=== PATIENT | male | born 1950 | race Caucasian/White ===

== ENCOUNTER → 2016-07-01 | Day surgery (SDC) | payer BC ==
[2016-06-27 07:35] VITALS: Ht 175.3 cm; Wt 86.4 kg
[~2016-07-01] VITALS: Ht 175.3 cm; Wt 86.4 kg
[~2016-07-01] MED LIST: CEFD300C2 PO; CHOL2000 PO; FURO-85 PO; LIDOCAINE HCL 2% 2 ML VIAL (20MG/ML) ONE; MULT-506 PO; PANT40TA PO; PROPOFOL IV EMULSION 10 MG/ML 20 ML VIAL IV ONE; SODIUM CHLORIDE 0.9% 500ML 500 ML IV ONE; SODIUM CHLORIDE PO
--- NOTE | 2016-07-01 09:12 | Endo History and Physical ---
History & Physical Date of Service: July 01, 2016. Chief Complaint: Celis's,history of polyps and family history of colon cancer Referring Physician: Dr. George Slaughter History of Present Illness 66 yo CM who presents for EGD and Colonoscopy secondary to Celis's esophagus and history of colon polyps. Past Medical History Reflux, Other Past Surgical History Hx Cardiac Surgery: No Hx Internal Defibrillator: No Hx Pacemaker: No Hx Abdominal Surgery: Yes (APPY, SYMONE) Hx Post-Op Nausea and Vomiting: No Hx Cancer Surgery: No Hx Thoracic Surgery: No Hx Orthopedic: Yes (RT AND LEFT SHOULDER REPAIR,REPAIR OF FX LEFT TIBIA AND FIBIA) Hx Urinary Tract Surgery: No Family History Colon CA Social History Smoking Status: Former Smoker Hx Substance Use: No Hx Alcohol Use: Yes (2-3 BEERS DAILY) Allergies Coded Allergies: Cephalexin (Verified Allergy, Intermediate, SHORTNESS OF BREATH, 06/27/16) Current Medications Reported Home Medications Medications Dose Route/Sig Max Daily Dose Days Date Category [Sodium Chloride] 1 Gm PO BID 06/27/16 Reported Vitamin D3 (Cholecalciferol) 2,000 Unit Cap 1 Cap PO DAILY AFTERNOON 90 06/27/16 Reported Multivitamin (Multivitamins) Tab 1 Tab PO DAILY AFTERNOON 06/27/16 Reported Lasix (Furosemide) 20 Mg Tab 20 Mg PO QAM 06/27/16 Reported Protonix (Pantoprazole Sodium) 40 Mg Tab 40 Mg PO QAM 06/27/16 Reported Vital Signs Weight (Kilograms): 86.36 Height (Feet): 5 Height (Inches): 9 Date Time Temp Pulse Resp B/P Pulse Ox O2 Delivery O2 Flow Rate FiO2 07/01/16 08:57 36.5 63 20 150/72 99 Room Air Physical Exam General Appearance: WD/WN, no apparent distress Respiratory/Chest: Auscultation: breath sounds normal Cardiovascular: Heart Auscultation: RRR Abdomen: Bowel Sounds: normal Inspection & Palpation: soft, non-distended, no tenderness, guarding & rebound Assessment and Plan Assessment: 66 yo CM who presents for EGD and Colonoscopy secondary to Celis's esophagus and history of colon polyps. Plan: Proceed with EGD and colonoscopy.
--- NOTE | 2016-07-01 09:39 | Discharge Instructions ---
Endoscopy Patient Instructions Date / Procedure(s) Performed July 01, 2016. Colonoscopy, EGD Allergy Information Coded Allergies: Cephalexin (Verified Allergy, Intermediate, SHORTNESS OF BREATH, 06/27/16) Discharge Date / Findings July 01, 2016. EGD: Celis's Esophagus and Hiatal hernia Colonoscopy: Normal Medication Instructions OK to resume all medications today as prescribed Reported Home Medications Medications Dose Route/Sig Max Daily Dose Days Date Category [Sodium Chloride] 1 Gm PO BID 06/27/16 Reported Vitamin D3 (Cholecalciferol) 2,000 Unit Cap 1 Cap PO DAILY AFTERNOON 90 06/27/16 Reported Multivitamin (Multivitamins) Tab 1 Tab PO DAILY AFTERNOON 06/27/16 Reported Lasix (Furosemide) 20 Mg Tab 20 Mg PO QAM 06/27/16 Reported Protonix (Pantoprazole Sodium) 40 Mg Tab 40 Mg PO QAM 06/27/16 Reported Provider Instructions Activity Restrictions - No exercising or heavy lifting for 24 hours. - Do not drink alcohol the day of the procedure. - Do not drive a car or operate machinery until the day after the procedure. - Do not make any important decisions or sign important papers in 24 hours after the procedure. Following Day: - Return to full activity which may include returning to work/school. Diet Start your diet with liquids and light foods (jello, soup, juice, toast). Then eat your usual diet if not nauseated. Treatment For Common After Affects For mild abdominal pain, bloating, or excessive gas: - Rest - Eat lightly - Lie on right side Follow-Up Information Follow-up with Dr. George Slaughter as scheduled Anesthesia Information What You Should Know You have had a procedure that required some medicine to reduce anxiety and discomfort. This treatment is called moderate sedation. After receiving the treatment, you may be sleepy, but you will be able to breathe on your own. The effects of the treatment may last for several hours. Follow these instructions along with Activity/Diet recommendations noted above: * Do NOT do anything where dizziness or clumsiness would be dangerous. * Rest quietly at home today, then you can be up and about tomorrow. * Have a responsible person stay with you the rest of today. * You may have had an I.V. today. If so, you may take the dressing off later today. Recommendations Call your doctor if: * Trouble breathing * Continuous vomiting for more than 24 hours * Temperature above 101 degrees * Severe abdominal pain or bloating * Pain not relieved by pain medicine ordered * There is increased drainage or redness from any incision * A large amount of rectal bleeding greater than 2-3 tablespoons. (If you had a polyp/s removed or have hemorrhoids, a small amount of blood - from the rectum is to be expected.) * You have any unanswered questions or concerns. IN THE EVENT OF A SERIOUS EMERGENCY, GO TO THE NEAREST EMERGENCY ROOM Your discharge instructions were prepared by provider Rogelio Ortiz. Patient Instructions Signature Page Fred Isbell Patient (or Guardian) Signature/Date: I have read and understand the instructions given to me by my caregivers. Caregiver/RN/Doctor Signature/Date: The above-named patient and/or guardian has received patient instructions on this date. + Original Patient Signature Page (only) stays with chart. Please make copy for patient.
--- NOTE | 2016-07-01 09:40 | Anesthesiology Progress Note ---
Anesthesia Post Op Note Date & Time July 01, 2016 at 09:40 Vital Signs Pain Intensity: 0 Vital Signs Past 12 Hours Date Time Temp Pulse Resp B/P Pulse Ox O2 Delivery O2 Flow Rate FiO2 07/01/16 08:57 36.5 63 20 150/72 99 Room Air Notes Mental Status: alert / awake / arousable, participated in evaluation Pt Amnestic to Procedure: Yes Nausea / Vomiting: adequately controlled Pain: adequately controlled Airway Patency, RR, SpO2: stable & adequate BP & HR: stable & adequate Hydration State: stable & adequate Anesthetic Complications: no major complications apparent
--- NOTE | 2016-07-01 09:46 | GI REPORT ---
Procedure Date: 07/01/2016 9:02 AM Procedure: Upper GI endoscopy Indications: Follow-up of Celis's esophagus Medicines: Monitored Anesthesia Care Complications: No immediate complications. Estimated Blood Loss: Estimated blood loss: none. Procedure: Pre-Anesthesia Assessment: - Prior to the procedure, a History and Physical was performed, and patient medications and allergies were reviewed. The patient's tolerance of previous anesthesia was also reviewed. The risks and benefits of the procedure and the sedation options and risks were discussed with the patient. All questions were answered, and informed consent was obtained. Prior Anticoagulants: The patient has taken no previous anticoagulant or antiplatelet agents. ASA Grade Assessment: II - A patient with mild systemic disease. After reviewing the risks and benefits, the patient was deemed in satisfactory condition to undergo the procedure. After obtaining informed consent, the endoscope was passed under direct vision. Throughout the procedure, the patient's blood pressure, pulse, and oxygen saturations were monitored continuously. The On-site loaner was introduced through the mouth, and advanced to the second part of duodenum. The upper GI endoscopy was accomplished without difficulty. The patient tolerated the procedure well. Findings: There were esophageal mucosal changes consistent with short-segment Celis's esophagus present at the gastroesophageal junction. The maximum longitudinal extent of these mucosal changes was 3 cm in length. Biopsies were taken with a cold forceps for histology. A medium-sized hiatus hernia was present. The examined duodenum was normal. Impression: - Esophageal mucosal changes consistent with short-segment Celis's esophagus. Biopsied. - Medium-sized hiatus hernia. - Normal examined duodenum. Recommendation: - Resume previous diet. - Continue present medications. - Await pathology results. - Return to primary care physician as previously scheduled. Rogelio Ortiz DO 07/01/2016 9:45:27 AM This report has been signed electronically. Note Initiated On: 07/01/2016 9:02 AM I attest to the content of the Intraoperative Record and orders documented therein, exceptions below
--- NOTE | 2016-07-01 09:50 | GI REPORT ---
Procedure Date: 07/01/2016 9:01 AM Procedure: Colonoscopy Indications: High risk colon cancer surveillance: Personal history of colonic polyps, Family history of colon cancer in a first-degree relative Medicines: Monitored Anesthesia Care Complications: No immediate complications. Estimated Blood Loss: Estimated blood loss: none. Procedure: Pre-Anesthesia Assessment: - Prior to the procedure, a History and Physical was performed, and patient medications and allergies were reviewed. The patient's tolerance of previous anesthesia was also reviewed. The risks and benefits of the procedure and the sedation options and risks were discussed with the patient. All questions were answered, and informed consent was obtained. Prior Anticoagulants: The patient has taken no previous anticoagulant or antiplatelet agents. ASA Grade Assessment: II - A patient with mild systemic disease. After reviewing the risks and benefits, the patient was deemed in satisfactory condition to undergo the procedure. After I obtained informed consent, the scope was passed under direct vision. Throughout the procedure, the patient's blood pressure, pulse, and oxygen saturations were monitored continuously. The scope was introduced through the anus and advanced to the terminal ileum. The colonoscopy was performed without difficulty. The patient tolerated the procedure well. The quality of the bowel preparation was good. The terminal ileum, the appendiceal orifice and the rectum were photographed. Findings: The entire examined colon appeared normal. Impression: - The entire examined colon is normal. - No specimens collected. Recommendation: - Resume previous diet. - Continue present medications. - Repeat colonoscopy in 5 years for surveillance. - Return to primary care physician as previously scheduled. Rogelio Ortiz DO 07/01/2016 9:49:19 AM This report has been signed electronically. Note Initiated On: 07/01/2016 9:01 AM I attest to the content of the Intraoperative Record and orders documented therein, exceptions below
[2016-07-01 10:20] VITALS: BP 142/68; PULSE 55; O2SAT 100
== END | disposition home or self-care (01) ==
LOC: C.GI 08:39
PROVIDERS: ATTEND Internal Medicine
DX: Z12.11 Encounter for screening for malignant neoplasm of colon (principal); Z86.010 Personal history of colon polyps; Z80.0 Family history of malignant neoplasm of digestive organs; K22.70 Barrett's esophagus without dysplasia; K44.9 Diaphragmatic hernia without obstruction or gangrene; Z87.891 Personal history of nicotine dependence; K20.9 Esophagitis, unspecified; Z79.899 Other long term (current) drug therapy
CPT/HCPCS: 43239; G0105

== ENCOUNTER 2016-07-24 12:08 | Emergency (ER) | payer BC ==
[~2016-07-24] VITALS: Ht 175.3 cm; Wt 88.9 kg
[~2016-07-24 12:08] MED LIST changes: -CEFD300C2 PO; -LIDOCAINE HCL 2% 2 ML VIAL (20MG/ML) ONE; -PROPOFOL IV EMULSION 10 MG/ML 20 ML VIAL IV ONE; -SODIUM CHLORIDE 0.9% 500ML 500 ML IV ONE
[2016-07-24 12:11] VITALS: Ht 175.3 cm; Wt 88.9 kg
[2016-07-24] MEDS ORDERED: BUPIVACAINE 0.5 % 5 MG/1 ML MPF 30ML VIAL INFIL STA (12:48)
[2016-07-24] MEDS ORDERED: XYLOCAINE 1%/SOD BICARB 20 ML VIAL INFIL STA (12:48)
[2016-07-24] MEDS ORDERED: CEFDINIR 300 MG CAP PO STA (12:56)
--- NOTE | 2016-07-24 12:56 | DIAGNOSTIC IMAGING REPORT ---
RIGHT FOURTH FINGER 3 VIEWS CLINICAL HISTORY: crush injury to right 4th finger Right COMPARISON STUDY: None. FINDINGS: Soft tissue swelling within the right fourth finger. Soft tissue laceration at the distal tip. No dislocation. No fractures. No radiopaque foreign bodies. IMPRESSION: Soft tissue swelling and a soft tissue laceration within the right fourth finger. No fracture or dislocation. Electronically signed by: Regino Arreola M.D. 07/24/2016 12:55 PM Dictated Date/Time: 07/24/2016 12:53 PM
[2016-07-24] MEDS ORDERED: GELATIN SPONGE 12-7MM EXT STA (13:08)
[2016-07-24] MEDS ORDERED: DIPHTHERIA/TETANUS/PERTUSSIS 0.5 ML SYR/VIAL IM. ONE (13:15)
[2016-07-24] MEDS ORDERED: CEFD300C2 PO (14:19)
--- NOTE | 2016-07-24 14:22 | EMERGENCY ROOM VISIT NOTE ---
ED Visit Note First contact with patient: 12:30 Chief Complaint: "Ring fingertip laceration". History of Present Illness: This patient is a 66-year-old male who presents to the Emergency Department via private vehicle for evaluation of their right fourth digit laceration. Patient sustained the laceration while attempting to transfer logs into his tractor bucket when he accidentally smashed his finger between a log and bucket. They report a moderate amount of bleeding initially. They deny any numbness or tingling into the distal extremity. They report no decreased range of motion of the affected digit. Injury was sustained at 11:15 AM today. Patient rates his current discomfort as a 6-8/10. Patient's Tetanus status is believed to be currently up-to-date but the patient is unsure. Medications: As noted below Allergies: Cephalexin PMH: No pertinent past medical history at this time. SHx: Patient lives at home with /significant other ROS: All pertinent positive and negative review of systems are appropriately documented in the History of Present Illness. Physical Exam: VITAL SIGNS - Vital signs and nursing notes were reviewed. GENERAL -66-year-old male appearing his stated age who is in no acute distress. Communicates well with provider and answers questions appropriately. SKIN - There is an avulsion of the distal tip of the right fourth digit that spans 1 cm in length. The region does get down to the level of the adipose tissue. No bone exposed. The edges gape apart with traction. No foreign bodies appreciated. Upon further examination there are no deep structures including vessel, tendon, or bony structures appreciated. There is no active bleeding noted. MUSCULOSKELETAL - Laceration as described above. +5/5 strength appreciated of the affected digit. Full range of motion of the affected digit. NEUROLOGIC -sensory intact. Neurovascularly intact. VASCULAR - Capillary refill was brisk. IMAGING: RIGHT FOURTH FINGER 3 VIEWS CLINICAL HISTORY: crush injury to right 4th finger Right COMPARISON STUDY: None. FINDINGS: Soft tissue swelling within the right fourth finger. Soft tissue laceration at the distal tip. No dislocation. No fractures. No radiopaque foreign bodies. IMPRESSION: Soft tissue swelling and a soft tissue laceration within the right fourth finger. No fracture or dislocation. Electronically signed by: Regino Arreola M.D. 07/24/2016 12:55 PM Dictated Date/Time: 07/24/2016 12:53 PM ED Course: Patient was seen and evaluated by myself. Risks and benefits of performing primary wound closure versus no repair were discussed with the patient who verbalizes understanding. Patient has avulsed the distal tip of the finger and the piece that is removed is not available. I am concerned about underlying tissue/bone therefore radiograph was obtained. Results as above. No fracture. Verbal consent was obtained prior to performing the procedure. 7 cc of 50/50 1% buffered lidocaine and 0.5% bupivacaine was used to perform a digital block of the right fourth digit. The wound was cleansed and prepped in the typical sterile fashion utilizing normal saline and Betadine. Due to the concern of infection developing in this dirty wound, I do believe that prophylactic antibiotics are warranted. Patient notes a Keflex allergy, however this was during a time when his sodium was [id number] shortness of breath but no anaphylaxis. I did reviewing his past medical history that he had been administered several sports previously without difficulty. After a thorough discussion of benefits versus risks, a patient noted that he was willing to try another cephalosporin despite the risks. He was administered and Omnicef tablet of 300 mg here, and was observed for one hour. No reaction was noted. He'll be sent home with a 7 day supply of the same medication. He was instructed to be in the presence of a family member when administering himself the next few doses as a reaction may develop. He is to stop the medication return immediately called 911 this is to develop. The wound was sterilely draped. Once proper anesthetization was established, the wound was further examined and demonstrated a clean avulsed lesion. The wound was copiously irrigated with normal saline and Betadine. The wound was closed using one simple , 5-0 Vicryl suture with the wound edges being well approximated followed by Gelfoam for the remainder of the wound could not be closed. Patient tolerated the procedure well. No complications were met. The wound was cleansed and dressed with bulky pressure dressing. Patient received their Adacel vaccination after verifying that his tetanus was 7 years old. Patient educated on worrisome symptoms for return visit to the Emergency Department. Patient discharged to home in good condition. In the evaluation and treatment of this patient, the following differential diagnoses were considered: Finger Fracture, Finger Dislocation, Finger Sprain, Finger Contusion, Jersey Finger, or Mallet Finger. 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 Current/Historical Medications Scheduled Cefdinir (Omnicef), 1 CAP PO BID Cholecalciferol (Vitamin D3), 1 CAP PO DAILY AFTERNOON Furosemide (Lasix), 20 MG PO QAM Multivitamin (Multivitamin), 1 TAB PO DAILY AFTERNOON Pantoprazole (Protonix), 40 MG PO QAM [Sodium Chloride], 1 GM PO BID Allergies Coded Allergies: Cephalexin (Verified Allergy, Intermediate, SHORTNESS OF BREATH, 07/24/16) Vital Signs Date Time Temp Pulse Resp B/P Pulse Ox O2 Delivery O2 Flow Rate FiO2 07/24/16 14:30 36.5 61 18 153/83 98 07/24/16 13:58 61 18 153/83 98 Room Air 07/24/16 12:11 36.5 80 18 177/89 96 Room Air Medications Administered Medications (Trade) Dose Ordered Sig/Francis Route Start Time Stop Time Status Last Admin Dose Admin Cefdinir (Omnicef Cap) 300 mg ONE STAT PO 07/24/16 12:56 07/24/16 12:58 DC 07/24/16 13:17 300 MG Diphtheria/ Pertussis/Tetanus Vacc (Adacel Inj) 0.5 ml ONCE ONCE IM. 07/24/16 13:15 07/24/16 13:16 DC 07/24/16 13:12 0.5 ML Departure Information Impression Primary Impression: Amputation of finger tip Dispostion Home / Self-Care Condition GOOD Prescriptions Cefdinir (OMNICEF) 300 Mg Cap 1 CAP PO BID for 7 Days, #14 CAP Prov: Jesus Alberto Davison PA-C 07/24/16 Referrals George Slaughter M.D. (PCP) Alejo Winter MD Patient Instructions [facility] Additional Instructions You have been treated in the Emergency Department today for your right 4th finger tip Avulsion. Leave the GELFOAM and dressing in place for the next 48 hours. Keep the dressing clean and dry until time for removal. To remove the GELFOAM dressing, remove the overlying tape and then soak the wound in warm water until the piece of GELFOAM can be easily removed. Proper wound care is essential for adequate wound healing and infection prevention. You can shower and clean the wound with soap and water. Do not scour over the wound, pat dry with a towel. You can use an antibiotic ointment with a dressing/bandage over the wound for the next 3-4 days. After this time you may leave the wound dry and open to the air. Look for signs of infection of the wound including: increased pain, swelling, foul discharge, streaking, or increased temperature. If any of these are noticed you should return to the Emergency Department for further assessment and treatment. As with any laceration you may have received nerve damage to the surrounding tissues. This damage could be permanent. For pain control, you can use the following [id number] medicines (if >12 yo): - Regular strength (325mg/tab) Tylenol (acetaminophen) 2 tabs every 4-6 hours as needed. Do not exceed 12 tablets in a 24 hour period. Avoid taking more than 3 grams (3000 mg) of Tylenol per day. This includes any other sources of acetaminophen you may take on a regular basis. - Regular strength (200 mg/tab) Advil (ibuprofen) 1-2 tabs every 4-6 hours as needed. Do not exceed a dose of 3200 mg per day. You've been prescribed Omnicef, as we discussed this medication is a cephalosporin of which you have been allergic to in the past supposedly. We have tried this medication here and you have successfully not had a reaction for the past hour. You've indicated that you are okay taking this medication. This is one tablet every 12 hours for next 7 days. You may take the next tablet around midnight. Duty or injury, it is recommended you follow-up with a hand specialist. This is Dr. Winter. His phone number is listed in the handout here. Return to the emergency department if your symptoms worsen despite treatment course outlined above. Please return to the emergency department with any new/concerning symptoms.
[2016-07-24 14:30] VITALS: BP 153/83; PULSE 61; TEMP 36.5; O2SAT 98
== END 2016-07-24 14:25 | disposition home or self-care (01) ==
LOC: C.EDB 12:10 → C.EDD 14:25
DX: S61.214A Laceration without foreign body of right ring finger without damage to nail, initial encounter (principal); W23.0XXA Caught, crushed, jammed, or pinched between moving objects, initial encounter; Y93.89 Activity, other specified; K22.70 Barrett's esophagus without dysplasia; I10 Essential (primary) hypertension; K21.9 Gastro-esophageal reflux disease without esophagitis; Z87.891 Personal history of nicotine dependence; Z79.899 Other long term (current) drug therapy; Z23 Encounter for immunization

== ENCOUNTER → 2016-11-14 | Outpatient (CLI) | payer BC ==
[2016-11-14 12:53] LABS: ALT/SGPT 19 U/L (12-78); AST/SGOT 10 U/L (15-37); BLOOD UREA NITROGEN 10 mg/dl (7-18); BUN/CREATININE RATIO 10.2 (10-20); CARBON DIOXIDE 30 mmol/L (21-32); CHLORIDE 96 mmol/L (98-107); CREATININE 0.96 mg/dl (0.60-1.40); GLUCOSE 104 mg/dl (70-99); POTASSIUM 4.3 mmol/L (3.5-5.1); SODIUM 132 mmol/L (136-145)
[2016-11-14 12:55] LABS: ALB/GLOB RATIO 1.4 (0.9-2); ALKALINE PHOSPHATASE 70 U/L (45-117)
== END | disposition home or self-care (01) ==
LOC: C.LABBFT 10:50
PROVIDERS: ATTEND Internal Medicine
DX: E22.2 Syndrome of inappropriate secretion of antidiuretic hormone (principal)

== ENCOUNTER → 2016-11-27 | Outpatient (CLI) | payer BC ==
--- NOTE | 2016-11-27 14:10 | DIAGNOSTIC IMAGING REPORT ---
CHEST 2 VIEWS ROUTINE HISTORY: 66 years-old Male CHEST PAIN acute atypical chest pain. Initial exam. COMPARISON: Chest radiograph 04/04/2014 TECHNIQUE: PA and lateral views of the chest FINDINGS: Cardiomediastinal and hilar silhouettes are within normal limits. There is atherosclerosis of the aorta. No pneumothorax, pleural effusion or focal airspace consolidation. There is no overt pulmonary edema. Retrocardiac opacity overlying the spine on lateral projection appears unchanged compatible with composite density artifact. Multilevel bridging osteophytes are seen throughout the spine. Surgical clips are seen within the upper abdomen suggesting prior cholecystectomy. IMPRESSION: No acute cardiopulmonary process. The above report was generated using voice recognition software. It may contain grammatical, syntax or spelling errors. Electronically signed by: Brad Flynn M.D. 11/27/2016 2:09 PM Dictated Date/Time: 11/27/2016 2:08 PM
== END | disposition home or self-care (01) ==
LOC: C.RAD1850 13:52
PROVIDERS: ATTEND Internal Medicine
DX: R07.9 Chest pain, unspecified (principal)

== ENCOUNTER → 2016-12-26 | Outpatient (CLI) | payer BC ==
[2016-12-26 12:39] LABS: BLOOD UREA NITROGEN 13 mg/dl (7-18); BUN/CREATININE RATIO 13.5 (10-20); CARBON DIOXIDE 26 mmol/L (21-32); CHLORIDE 99 mmol/L (98-107); CREATININE 0.94 mg/dl (0.60-1.40); GLUCOSE 93 mg/dl (70-99); PHOSPHORUS 3.5 mg/dl (2.5-4.9); POTASSIUM 4.3 mmol/L (3.5-5.1); SODIUM 132 mmol/L (136-145)
[2016-12-26 12:53] LABS: BASO % 0.3 %; BASO ABS # 0.01 K/uL (0-0.2); COMPLETE YES; EOS % 4.1 %; LYMPH % 29.7 %; MEAN CELL VOLUME 86.6 fL (80-100); MEAN CORPUSCULAR HEMOGLOBIN 30.7 pg (25-34); MEAN CORPUSCULAR HGB CONC 35.5 g/dl (32-36); MEAN PLATELET VOLUME 9.3 fL (7.4-10.4); MONO % 10.3 %; NEUT % 55.6 %; PLATELET COUNT 223 K/uL (130-400); RED BLOOD COUNT 4.62 M/uL (4.7-6.1)
[2016-12-26 13:01] LABS: CREATININE, URINE 55.8 mg/dl; URINE TOTAL PROTEIN < 5.0 mg/dl (0-11.9)
[2016-12-26 13:02] LABS: URINE APPEARANCE CLEAR (CLEAR); URINE BILIRUBIN NEG (NEG); URINE COLOR YELLOW; URINE EPITHELIAL CELL AUTO 0-5 /lpf (0-5); URINE NITRITE NEG (NEG); URINE SPECIFIC GRAVITY 1.015 (1.000-1.030); UROBILINOGEN NEG (NEG)
[2016-12-26 13:08] LABS: MANUAL MICROSCOPIC REQUIRED? NO; REVIEW REQ? NO
== END | disposition home or self-care (01) ==
LOC: C.LABBFT 08:17
PROVIDERS: ATTEND Internal Medicine Nephrology
DX: E55.9 Vitamin D deficiency, unspecified (principal); E22.2 Syndrome of inappropriate secretion of antidiuretic hormone

== ENCOUNTER → 2017-01-13 | Outpatient (CLI) | payer BC ==
[2017-01-13 12:32] LABS: HEMATOCRIT 40.4 % (42-52); MEAN CELL VOLUME 87.3 fL (80-100); MEAN CORPUSCULAR HEMOGLOBIN 30.5 pg (25-34); MEAN CORPUSCULAR HGB CONC 34.9 g/dl (32-36); MEAN PLATELET VOLUME 9.3 fL (7.4-10.4); PLATELET COUNT 216 K/uL (130-400); RED BLOOD COUNT 4.63 M/uL (4.7-6.1); WHITE BLOOD COUNT 3.47 K/uL (4.8-10.8)
[2017-01-13 12:56] LABS: BLOOD UREA NITROGEN 12 mg/dl (7-18); BUN/CREATININE RATIO 12.3 (10-20); CALCIUM 9.2 mg/dl (8.5-10.1); CARBON DIOXIDE 29 mmol/L (21-32); CHLORIDE 98 mmol/L (98-107); CREATININE 1.01 mg/dl (0.60-1.40); GLUCOSE 105 mg/dl (70-99); POTASSIUM 4.5 mmol/L (3.5-5.1); SODIUM 135 mmol/L (136-145)
[2017-01-13 12:57] LABS: PHOSPHORUS 3.1 mg/dl (2.5-4.9)
== END | disposition home or self-care (01) ==
LOC: C.LABBFT 08:44
PROVIDERS: ATTEND Internal Medicine Nephrology
DX: D64.9 Anemia, unspecified (principal); E22.2 Syndrome of inappropriate secretion of antidiuretic hormone; E55.9 Vitamin D deficiency, unspecified

== ENCOUNTER → 2017-03-18 | Outpatient (CLI) | payer OTHER ==
[2017-03-18 13:08] LABS: ALBUMIN 4.1 gm/dl (3.4-5.0); ALT/SGPT 21 U/L (12-78); BLOOD UREA NITROGEN 12 mg/dl (7-18); CALCIUM 8.9 mg/dl (8.5-10.1); CARBON DIOXIDE 27 mmol/L (21-32); CHOLESTEROL 171 mg/dl (0-200); CREATININE 0.99 mg/dl (0.60-1.40); GLUCOSE 92 mg/dl (70-99); POTASSIUM 4.3 mmol/L (3.5-5.1); SODIUM 133 mmol/L (136-145)
[2017-03-18 13:12] LABS: ALKALINE PHOSPHATASE 66 U/L (45-117); AST/SGOT 14 U/L (15-37); LDL CHOLESTEROL CALCULATED 97 mg/dl; TOTAL PROTEIN 7.2 gm/dl (6.4-8.2)
== END | disposition home or self-care (01) ==
LOC: C.LABBFT 08:45
PROVIDERS: ATTEND Internal Medicine
DX: E78.5 Hyperlipidemia, unspecified (principal); Z12.5 Encounter for screening for malignant neoplasm of prostate

== ENCOUNTER → 2017-06-03 | Outpatient (CLI) | payer OTHER | END | disposition home or self-care (01) | LOC: C.LABBFT 08:15 | PROVIDERS: ATTEND Nurse Practitioner | DX: R19.7 Diarrhea, unspecified (principal) ==

== ENCOUNTER 2018-11-17 04:50 | Inpatient (IN) ==
--- NOTE | 2018-10-22 14:16 | PAT Medication Instructions ---
Medication Instructions Date of Service October 22, 2018 Home Medications Medication Instructions Recorded oxycodone-acetaminophen 5 mg-325 1 tab PO BID PRN #60 tab 08/27/ mg tablet cholecalciferol (vitamin D3) 1,000 unit PO QPM furosemide 20 mg PO QAM multivitamin 1 tab PO QPM pantoprazole 40 mg PO QAM sodium chloride 1 g PO BID oxycodone-acetaminophen 5 mg-325 mg tablet 1 tab PO BID PRN DO NOT take the morning of surgery furosemide 20 mg PO QAM multivitamin 1 tab PO QPM sodium chloride 1 g PO BID Take morning of surgery With a small sip of water, OTHERWISE NOTHING TO EAT OR DRINK AFTER MIDNIGHT: pantoprazole 40 mg PO QAM oxycodone-acetaminophen 5 mg-325 mg tablet 1 tab PO BID PRN (okay to take up to 4 hours prior to surgery if needed) Take evening before surgery cholecalciferol (vitamin D3) 1,000 unit PO QPM multivitamin 1 tab PO QPM sodium chloride 1 g PO BID oxycodone-acetaminophen 5 mg-325 mg tablet 1 tab PO BID PRN (if needed) Other Notes If you have any questions please call us at [phone] or [phone] or [phone] or [phone]
--- NOTE | 2018-10-23 10:16 | History & Physical Report ---
Date of Service October 23, 2018 date of surgery: 11-17-18 Assessment & Plan (1) Tricompartment osteoarthritis of right knee: Risks and benefits of procedure discussed in detail today, patient would like to proceed with a Right total knee replacement at [facility] as scheduled. will obtain medical clearance prior to surgery as well as obtain PATs at [facility]. Will place on ASA 81mg po bid x 1 month post op, f/u 2 weeks post op for routine post-operative care and x-ray, sooner if having any problems. will make arrangements for HHPT at the time of discharge. At this point in time, has failed conservative measures and would like to proceed with surgical intervention. History of Present Illness Chief Complaint: right knee pain Primary Care Provider: George Slaughter MD Mr Isbell is a 68 year old male who is here for a follow up of right knee pain and presents for pre op prior to a right total knee replacement. He presents with pain, crepitus, stiffness, instability in his right knee. He states that the symptoms have been chronic non-traumatic and occur intermittently. currently the patient states that the symptoms are moderate-severe. His pain is described as aching and throbbing He rates his current pain as 3/10 and worst is 6/10. The symptoms are aggravated by repetitive activities, stairs, standing, kneeling and walking. In addition to right knee pain the patient is also experiencing decreased mobility, difficulty bending, pain after activity, limping and nighttime awakening. Patient is taking Oxycodone/APAP for pain at bedtime only. he has tried previous NSAIDs including IBU and Aleve. Allergies Allergy/AdvReac Type Severity Reaction Status Date / Time cephalexin Allergy Intermediate SOB Verified 10/22/18 15:37 prednisone Allergy Unknown SOB Verified 10/22/18 15:37 clindamycin AdvReac Severe C. DIFF Verified 10/22/18 15:37 Home Medications Home Medications Medication Instructions Recorded Confirmed Type cholecalciferol (vitamin D3) 1,000 unit PO QPM 05/22/18 10/12/18 History furosemide 20 mg PO QAM 05/22/18 10/12/18 History multivitamin 1 tab PO QPM 05/22/18 10/12/18 History pantoprazole 40 mg PO QAM 05/22/18 10/12/18 History sodium chloride 1 g PO BID 05/22/18 10/12/18 History oxycodone-acetaminophen 5 mg-325 1 tab PO BID PRN #60 tab 08/27/18 10/12/18 Rx mg tablet Past Med/Surg History Medical History SIADH (syndrome of inappropriate ADH production) Lumbar spondylosis Hiatal hernia Celis esophagus DJD (degenerative joint disease) of knee GERD (gastroesophageal reflux disease) Hearing deficit Hx of Clostridium difficile infection Surgical History History of meniscectomy of left knee History of surgical removal of ganglion cyst RIGHT Hx of appendectomy Hx of cholecystectomy Hx of nasal septoplasty Hx of shoulder surgery RIGHT AND LEFT Hx of tonsillectomy Family History Mother FHx: colon cancer Father FHx: lung cancer Grandmother (Maternal) FHx: lung cancer Brother FHx: cancer Grandfather (Maternal) FHx: cancer Social History Preferred Language: Greenlandic Beliefs That Will Affect Care: None Current Living Situation: Spouse Feels Safe at Home: Yes Safety Concerns: Feels Safe At This Time Smoking Status: Former smoker Do You Dip or Chew Tobacco: No ; Smoking End Date: 1984 ; Second Hand Exposure: No ; Hx Alcohol Use: Yes Alcohol type: beer Hx Substance Use: No Review of Systems Review of Systems: All systems reviewed & are unremarkable except as noted in HPI & below Constitutional: no fever, no chills and no sweats Respiratory: no cough and no dyspnea Cardiovascular: no chest pain, no dyspnea and no orthopnea Gastrointestinal: no abdominal pain, no nausea and no vomiting Musculoskeletal: as per Subjective / HPI Physical Exam Physical Exam: Ht: 5ft 9in Wt: 84.8kg BP: 134/64 pulse: 72 Constitutional: WD/WN, vitals as above no acute distress Respiratory: normal respiratory effort, lungs clear to auscultation no respiratory distress, no labored breathing and does not use accessory muscles Cardiovascular: RRR, no murmur, no edema Gastrointestinal (Abdomen): normal bowel sounds, soft, nontender, no hepatosplenomegaly Musculoskeletal: Knee: + knee abnormal to inspection (Right Knee Exam:), + effusion (+1 effusion), + surgical incision (well healed portals), + limited ROM of knee (ROM 0/3/110), + knee ROM with crepitation, + joint line tenderness (medial joint line) and + Torri's sign positive; no deformity, no skin erythema, no ecchymosis, no valgus laxity, no varus laxity, anterior drawer test negative, Crispin's sign negative and pivot shift test negative Results & Data Diagnostic Findings Right Knee X-ray from 11/17/18 showing advanced degenerative changes to the right knee, narrowing of the medial compartment and patello-femoral joint with patellar spurring noted, findings showing joint space narrowing of the medial compartment and patello-femoral joint, osteophyte formation and subchondral sclerosis noted. overall varus alignment. no acute bony pathology noted.
--- NOTE | 2018-10-23 11:15 | Anesthesiology Consultation ---
Date of Service October 23, 2018 Assessment & Plan (1) Encounter for pre-operative examination: Chart Review Chart Review: Acceptable Risk for Surgery and Patient seen in Pre Admission Testing Teaching & Discussion Instructed NPO after midnight before surgery, except medications with 15 cc of water. Medication instructions provided according to the PAT guidelines. History Surgery Operation Date: 11/17/18 07:15 Proposed Procedures p Right Total Knee Arthroplasty - Epi Sorto DO Height/Weight Height: 5 ft 9 in Weight: 88.1 kg Allergies Allergy/AdvReac Type Severity Reaction Status Date / Time cephalexin Allergy Intermediate SOB Verified 10/22/18 15:37 prednisone Allergy Unknown SOB Verified 10/22/18 15:37 clindamycin AdvReac Severe C. DIFF Verified 10/22/18 15:37 Medications Home Medications Medication Instructions Recorded Confirmed Last Taken cholecalciferol (vitamin D3) 1,000 unit PO QPM 05/22/18 10/12/18 05/22/18 furosemide 20 mg PO QAM 05/22/18 10/12/18 05/22/18 multivitamin 1 tab PO QPM 05/22/18 10/12/18 05/22/18 pantoprazole 40 mg PO QAM 05/22/18 10/12/18 05/22/18 sodium chloride 1 g PO BID 05/22/18 10/12/18 05/22/18 oxycodone-acetaminophen 5 mg-325 1 tab PO BID PRN #60 tab 08/27/18 10/12/18 Unknown mg tablet Past Medical History Medical History SIADH (syndrome of inappropriate ADH production) Lumbar spondylosis Hiatal hernia Celis esophagus DJD (degenerative joint disease) of knee GERD (gastroesophageal reflux disease) Hearing deficit Hx of Clostridium difficile infection 2017. Cleared. Exercise / Class Metabolic Activity II 4-5 Yardwork/Stairs/Walk up hill (Denies CP or SOB with 1 FOS) Past Family History Family History Mother FHx: colon cancer Father FHx: lung cancer Grandmother (Maternal) FHx: lung cancer Brother FHx: cancer Grandfather (Maternal) FHx: cancer Past Surgical History Surgical History History of meniscectomy of left knee History of surgical removal of ganglion cyst RIGHT Hx of appendectomy Hx of cholecystectomy Hx of nasal septoplasty Hx of shoulder surgery RIGHT AND LEFT Hx of tonsillectomy Past Anesthesia History No Hx of Anesthesia Complications and No Family Hx of Anesthesia Complications History of PONV No Hx of PONV and No Hx of Motion Sickness Social History Smoking Status: Former smoker Do You Dip or Chew Tobacco: No Smoking End Date: 1984 Hx Alcohol Use: Yes Alcohol type: beer alcohol intake frequency: 0-2 drinks per day (1-2 per day) Hx Substance Use: No Review of Systems Pt denies any recent chest pain, shortness of breath, palpitations, cough, fever or URI. Physical Exam Vital Signs BP: 150/73 (pt reports this is high for him, was 130s systolic at surgeon's office today) P: 64bpm SPO2: 98% RA T: 97.8 F R: 16 ENMT Mouth: + dental restorations (permanent upper and lower full denture, no [place] teeth); no chipped teeth and no loose teeth Thyromental Distance: < 3.5 Finger Breadths (3) Mallampati Class: II Neck normal visual inspection; neck extension not limited Respiratory normal respiratory effort Auscultation: lungs clear to auscultation bilaterally Cardiovascular Rate/Rhythm: regular rate and regular rhythm Heart Sounds: no murmur Vessels: no carotid bruit Extremities: no edema Testing Laboratory Results 10/23/18 11:27 10/23/18 11:27 PT 9.9 Seconds (9.0-12.0) 10/23/18 11:27 INR 1.0 (0.9-1.1) 10/23/18 11:27 APTT 23.8 Seconds (21.0-31.0) 10/23/18 11:27 Hemoglobin A1c 5.4 % (4.5-5.6) 10/23/18 11:27 Urine Color Yellow 10/23/18 11:27 Urine Appearance Clear (Clear) 10/23/18 11:27 Urine pH 7.0 (4.5-7.5) 10/23/18 11:27 Ur Specific [place] 1.013 (1.000-1.030) 10/23/18 11:27 Urine Protein Negative (Negative) 10/23/18 11:27 Urine Glucose (UA) Negative (Negative) 10/23/18 11:27 Urine Ketones Negative (Negative) 10/23/18 11:27 Urine Nitrite Negative (Negative) 10/23/18 11:27 Ur Leukocyte Esterase Negative (Negative) 10/23/18 11:27 Blood Type B Positive 10/23/18 11:27 Antibody Screen NEGATIVE 10/23/18 11:27 *h/o fluctuating leukopenia. Electrocardiogram Date: 05/22/18 Findings: + ST @ (102bpm) Otherwise normal EKG. HR 64bpm at PAT. Chest X-Ray Date: 05/22/18 Findings: + NAD Stress Test Date: 08/05/12 Resting EF: 60% Normal echocardiographic response to stress, thus excluding significant myocardial ischemia.
[2018-10-23 14:15] LABS: Basophils # (auto) 0.01 K/uL (0-0.2); Basophils % (auto) 0.3 %; Eosinophils # (auto) 0.13 K/uL (0-0.5); Eosinophils % (auto) 3.6 %; Hemoglobin 13.8 g/dL (14.0-18.0); Lymphocytes # (auto) 1.02 K/uL (1.2-3.4); Lymphocytes % (auto) 28.3 %; Mean Corpuscular Hgb Conc 35.4 g/dL (32-36); Mean Corpuscular Volume 87.6 fL (80-100); Mean Platelet Volume 9.4 fL (7.4-10.4); Monocytes # (auto) 0.27 K/uL (0.11-0.59); Monocytes % (auto) 7.5 %; Neutrophils # (auto) 2.18 K/uL (1.4-6.5); Neutrophils % (auto) 60.3 %; Platelet Count 236 K/uL (130-400); RDW Coefficient of Variation 13.8 % (11.5-14.5); RDW Standard Deviation 44.2 fL (36.4-46.3); Red Blood Count 4.45 M/uL (4.7-6.1); White Blood Count 3.61 K/uL (4.8-10.8)
[2018-10-23 14:25] LABS: Appearance Urine Clear (Clear); Bilirubin Urine Negative (Negative); Blood Urine Negative (Negative); Color Urine Yellow; Glucose Urine UA Negative (Negative); Ketones Urine Negative (Negative); Leukocyte Esterase Urine Negative (Negative); Nitrite Urine Negative (Negative); Protein Urine Negative (Negative); Specific Gravity Urine 1.013 (1.000-1.030); Urobilinogen Urine Negative (Negative)
[2018-10-23 14:30] LABS: Partial Thromboplastin Ratio 0.9; Partial Thromboplastin Time 23.8 Seconds (21.0-31.0); Prothrombin Time 9.9 Seconds (9.0-12.0)
[2018-10-23 14:55] LABS: Estimated Average Glucose 108 mg/dl; Hemoglobin A1C 5.4 % (4.5-5.6)
[2018-10-23 15:18] LABS: BUN Creatinine Ratio 12.7 (10-20); Calcium 9.2 mg/dl (8.5-10.1); Creatinine Clr Calc Pharmacy 75.4 ml/min; Est GFR (African American) 86.1; Est GFR (Non-African American) 74.3; Potassium 4.4 mmol/L (3.5-5.1)
[2018-11-17] MEDS ORDERED: ACETAMINOPHEN 500 MG TAB PO SCH (06:00)
[2018-11-17] MEDS ORDERED: CEFAZOLIN 2000MG 2,000 MG/15 ML SYR IV SCH (06:00)
[2018-11-17] MEDS ORDERED: LR 500ML BOLUS, THEN 15ML/HR IV SCH (06:00)
[2018-11-17] MEDS ORDERED: ROPIVACAINE 0.5% HCL/PF 150 MG, BUPIVACAINE 0.5% MPF 30 ML, EPINEPHrine 0.15 MG, Ketoro... INFIL SCH (06:00)
[2018-11-17] MEDS ORDERED: CLINDAMYCIN 600 MG/54 ML BAG IV SCH (06:00)
[2018-11-17] MEDS ORDERED: METOCLOPRAMIDE HCL 10 MG TABLET PO SCH (06:00)
[2018-11-17] MEDS ORDERED: dexAMETHasone 4 MG TAB PO SCH (06:00)
[2018-11-17] MEDS ORDERED: ROPIVACAINE 0.5% HCL/PF 150 MG, BUPIVACAINE 0.5% MPF 30 ML, EPINEPHrine 30MG/30ML (OR U... INFIL SCH (06:00)
[2018-11-17] MEDS ORDERED: CeleBREX 200 MG CAP PO SCH (06:00)
[2018-11-17] MEDS ORDERED: GABAPENTIN 300 MG CAP PO SCH (06:00)
[2018-11-17] MEDS ORDERED: FAMOTIDINE 20 MG TAB PO SCH (06:00)
[2018-11-17] MEDS ORDERED: VANCOMYCIN HCL 1,000 MG in SODIUM CHLORIDE 0.9% 250 ML IV SCH (06:00)
[2018-11-17] MEDS ORDERED: BUPIVACAINE 0.5 % 5 MG/1 ML PF 10ML VIAL ONE (06:20)
[2018-11-17] MEDS ORDERED: ROPIVACAINE 0.5% 5 MG/ML 30 ML VIAL ONE (06:21)
[2018-11-17] MEDS ORDERED: EPINEPHrine INJ 1 MG/ML AMP ONE (06:21)
[2018-11-17] MEDS ORDERED: TRANEXAMIC ACID 1,000 MG **IV Intra-op IV SCH (06:30)
[2018-11-17] MEDS ORDERED: fentaNYL citrate 100 MCG/2 ML VIAL ONE (06:58)
[2018-11-17] MEDS ORDERED: MIDAZOLAM HCL 1 MG/ML 2ML VIAL ONE ×2 (06:59→07:44)
[2018-11-17] MEDS ORDERED: ORTHO JOINT ANESTHETIC ONE (07:00)
[2018-11-17] MEDS ORDERED: BACITRACIN INJ 50,000 UNIT VIAL ONE (07:01)
[2018-11-17] MEDS: TRANEXAMIC ACID 1,000 MG **IV Pre-op IV SCH (07:10)
[2018-11-17] MEDS ORDERED: VANCOMYCIN HCL 1 GM/270 ML BAG ONE (07:13)
--- NOTE | 2018-11-17 07:20 | History & Physical Bridge Note ---
Date of Service November 17, 2018 History & Physical Bridge Note I have examined the patient, reviewed the History & Physical and in the interval since the performance of the History & Physical I have noted the following changes of clinical significance: no changes noted
[2018-11-17] MEDS ORDERED: ATROPINE SULFATE 0.1 MG/ML 10ML SYR IV PRN (07:22)
[2018-11-17] MEDS ORDERED: PHENYLEPHRINE 100MCG/ML 5ML SYR IV PRN (07:22)
[2018-11-17] MEDS ORDERED: ONDANSETRON INJ 2 MG/ML 2 ML VIAL IV PRN ×2 (07:22→09:58)
[2018-11-17] MEDS ORDERED: MEPERIDINE HCL 25 MG/ML CARP IV PRN (07:22)
[2018-11-17] MEDS ORDERED: ePHEDrine sulfate 50 MG/ML AMP IV PRN (07:22)
[2018-11-17] MEDS ORDERED: fentaNYL citrate 100 MCG/2 ML VIAL IV PRN (07:22)
[2018-11-17] MEDS ORDERED: LABETALOL HCL IV 5 MG/ML 20ML IV PRN (07:22)
[2018-11-17] MEDS ORDERED: LIDOCAINE HCL 2% 2 ML VIAL/AMP(20MG/ML) INFIL ONE (07:46)
[2018-11-17] MEDS ORDERED: ePHEDrine sulfate 50 MG/ML SYR ONE (07:46)
[2018-11-17] MEDS ORDERED: PROPOFOL IV EMULSION 10 MG/ML 20 ML VIAL IV ONE (07:46)
--- NOTE | 2018-11-17 08:29 | Operative Report ---
Post Operative Report Pre & Post Diagnosis Operation Date: 11/17/18 07:15 Pre-Op Diagnosis: Degenerative Joint Disease Right Knee Post-Op Diagnosis: Degenerative Joint Disease Right Knee Procedure Operation Date: 11/17/18 07:15 Actual Procedures p Right Total Knee Arthroplasty(Right) utilizing [employer] [facility] 2 patient matched total knee arthroplasty size 7 femur 7 tibia 9 polyethylene 35 oval patella- Epi Sorto DO Surgeon Epi Sorto DO [employer] Jose Alejandro K[place] Estimated Blood Loss 5 Findings Consistent with Post-Op Diagnosis Patient presents with severe end-stage tricompartmental degenerative joint disease with varus alignment bone to bone changes eburnated bone marginal osteophyte subchondral cystic changes moderate to large effusion no response to conservative management Specimens Bone cartilage Drains Medium bore Hemovac Complications none Disposition Accompanied Patient To Recovery: No Disposition: Recovery Room Indications Patient presents as a 60-year-old white male being seen by with planes of severe end-stage tricompartmental degenerative joint disease of the right knee no response to conservative management patient presents today for right total knee arthroplasty patient failed attempts at conservative management including injections physical therapy anti-inflammatories relative rest Visco supplementation corticosteroid injections bracing. The above intraoperative findings noted times surgery Description of Procedure Patient was properly identifiedAfter proper prepping and draping of the Right lower extremity anterior midline incision was made over the region of the extensor extensor mechanism after meticulous hemostasis was obtained and maintained in subcutaneous tissues a medial parapatellar incision was made The patella was subluxed lateralward the medial lateral gutter were cleaned from any hypertrophic synovitis and scar tissue of the distal femoral block was placed and the distal femoral osteotomy cut was made subsequently the chamfers anterior and posterior osteotomy cuts were made utilizing the 4-in-1 block the tibia was subsequently subluxed anteriorward medial and ateral meniscal remnants were excised in their entirety remnants of the anterior and posterior cruciate ligaments were excised in their entirety excellent exposure of the proximal tibia was obtained the tibial osteotomy guide was placed on the proximal tibial osteotomy cut was made once again the knee was irrigated with copious amounts of sterile saline solution the patella was subsequently everted lateralward thickened scar tissue around the patella was removed the patella was subsequently cut utilizing a freehand technique and was drilled prepared for final preparation and placement of patella socially flexion-extension gaps were checked and the equal and symmetric trials were placed to the appropriate femoral and tibial trials with poly-spacer being placed for equal flexion and extension gaps and full range of motion including extension to 0 and flexion to 140 the trial components after having been taken to recovery range of motion was subsequently removed meticulous hemostasis was obtained and maintained subsequently a knee block injection of joint cocktail including ropivacaine 0.5% 150 mg. Bupivacaine 0.5% epinephrine 1-200,030 mL's toradol 30 mg dexamethasone 4 mg ketamine 10 mg clonidine 100 micrograms normal saline solution 30 mg was infiltrated into the soft tissues of the posterior knee medial lateral gutters and periosteal synovium special attention was paid to protect neurovascular structures at all times subsequently trial components having been removed the knee was irrigated with sterile saline solution. debris was removed the proxim al tibia was subsequently prepared and was made ready for the placement of the tibial component tibial component was also cemented and tamped into position the femoral component was subsequently placed and cemented in the position the patellar component was subsequently cemented in position because hemostasis once again obtained and maintained wound having been thoroughly irrigated with debridement and debridement lavage was performed as well as a medial parapatellar incision closed with #1 Vicryl in interrupted fashion subcutaneous was closed with #2 Vicryl skin was closed with skin clips. PA-C was necessary for prepping and drapping as well as wound closure of deep fascia Sub cutaneous tissue and skin and was necessary for the case. A sterile compressive dressing was placed patient was taken to recovery in stable condition of report dictated by Macario I attest to the content of the Intraoperative Record and any orders documented therein. Any exceptions are noted below. I attest to the content of the Intraoperative Record and any orders documented therein. Any exceptions are noted below.
--- NOTE | 2018-11-17 09:53 | Anesthesiology Progress Note ---
Date of Service November 17, 2018 Anesthesia Post Procedure Vital Signs Vital Signs: Temp Pulse Pulse Resp BP Pulse Ox 11/17/18 09:45 36.6 C 57 L 16 110/52 L 97 11/17/18 09:35 63 16 122/64 98 11/17/18 09:25 57 L 16 125/67 100 11/17/18 09:19 36.2 C L 80 16 115/58 L 99 11/17/18 05:33 36.6 C 67 20 154/77 H 97 Transfer of Care Handoff Completed per policy Notes Mental Status: alert / awake / arousable Patient Amnestic to Procedure: Yes Nausea / Vomiting: adequately controlled Pain: adequately controlled Airway Patency, RR, SpO2: stable & adequate BP & HR: stable & adequate Hydration State: stable & adequate Neuraxial Anesthesia: was administered and sensory block is resolving Anesthetic Complications: no major complications apparent and Pt Satisfied with anesthetic care
[2018-11-17] MEDS ORDERED: VANCOMYCIN CONSULT ACTIVE PRN (09:58)
[2018-11-17] MEDS ORDERED: HYDROmorphone INJ 1 MG/ML SYRINGE IV PRN (09:58)
[2018-11-17] MEDS ORDERED: MAGNESIUM HYDROXIDE SUSP 30 ML UDC PO PRN (09:58)
[2018-11-17] MEDS ORDERED: METOCLOPRAMIDE HCL INJ 5 MG/ML 2 ML VIAL IV PRN (09:58)
[2018-11-17] MEDS ORDERED: NALOXONE HCL 0.4 MG/1 ML VIAL/CARP IV PRN (09:58)
[2018-11-17] MEDS ORDERED: BISACODYL 10 MG SUPP PR PRN (09:58)
--- NOTE | 2018-11-17 09:58 | XRay Report ---
XR knee RT 2V routine CLINICAL HISTORY: 68 years-old Male presenting with Surgical Post Op. TECHNIQUE: Frontal and crosstable lateral views of the right knee were obtained. COMPARISON: None. FINDINGS: Postsurgical changes of total right knee arthroplasty with patellar resurfacing. Expected intra-artic ular and soft tissue emphysema. A surgical drain is in place. No malalignment. No periprosthetic frac ture or lucency. IMPRESSION: Expected postsurgical changes status post total right knee arthroplasty with patellar resurfacing. Electronically signed by: Caleb Fragoso M.D. 11/17/2018 9:57 AM
[2018-11-17] MEDS ORDERED: SODIUM CHLORIDE 0.9% 1000ML 1,000 ML IV SCH (11:00)
[2018-11-17] MEDS: KETOROLAC TROMETHAMINE 15 MG/ML VIAL IV SCH ×3 (11:43→23:41)
[2018-11-17] MEDS: ACETAMINOPHEN 500 MG TAB PO SCH ×2 (13:36→20:18)
[2018-11-17] MEDS: OXYCODONE HCL IR 5 MG TAB (IMMEDIATE RELEASE) PO PRN ×2 (15:18→16:13)
[2018-11-17] MEDS ORDERED: VANCOMYCIN HCL 1,250 MG in SODIUM CHLORIDE 0.9% 250 ML IV SCH (20:00)
[2018-11-17] MEDS: SENNA 8.6 MG TAB PO SCH (20:17)
[2018-11-17] MEDS: DOCUSATE SODIUM 100 MG CAP PO SCH (20:17)
[2018-11-17] MEDS: CHOLECALCIFEROL 1,000 UNITS TAB PO SCH (20:19)
[2018-11-17] MEDS: ASPIRIN 81 MG ECTAB PO SCH (20:19)
[2018-11-18] MEDS: OXYCODONE HCL IR 5 MG TAB (IMMEDIATE RELEASE) PO PRN ×4 (03:32→15:51)
[2018-11-18] MEDS: KETOROLAC TROMETHAMINE 15 MG/ML VIAL IV SCH (05:34)
[2018-11-18] MEDS: ACETAMINOPHEN 500 MG TAB PO SCH ×3 (05:34→20:37)
[2018-11-18 06:42] LABS: Hematocrit (blood only) 31.7 % (42-52); Hemoglobin 10.9 g/dL (14.0-18.0); Mean Corpuscular Hemoglobin 30.4 pg (25-34); Mean Corpuscular Hgb Conc 34.4 g/dL (32-36); Mean Corpuscular Volume 88.3 fL (80-100); Mean Platelet Volume 9.2 fL (7.4-10.4); Platelet Count 178 K/uL (130-400); RDW Coefficient of Variation 13.7 % (11.5-14.5); RDW Standard Deviation 44.8 fL (36.4-46.3); Red Blood Count 3.59 M/uL (4.7-6.1); White Blood Count 4.36 K/uL (4.8-10.8)
--- NOTE | 2018-11-18 07:10 | Orthopedic Progress Note ---
Date of Service November 18, 2018 Assessment & Plan (1) Status post total right knee replacement: POD #1 s/p Right TKA pt/ot dvt proph with TALA/SCD/ASA plan for d/c home with HHPT when stable Subjective POD #1 s/p Right TKA Review of Systems Constitutional: no fever, no chills and no sweats Respiratory: no cough and no dyspnea Cardiovascular: no chest pain and no dyspnea Gastrointestinal: no abdominal pain, no nausea and no vomiting Physical Exam Physical Exam: Vital Signs Temp Pulse Pulse Resp BP Pulse Ox 11/18/18 03:22 36.6 C 62 16 149/77 H 99 11/17/18 23:02 36.5 C 67 16 136/71 97 11/17/18 19:33 36.4 C L 64 18 124/63 99 11/17/18 15:14 36.4 C L 60 16 154/78 H 100 11/17/18 12:53 62 18 137/73 98 11/17/18 12:10 61 18 128/69 100 11/17/18 11:01 52 L 18 125/72 100 11/17/18 10:29 71 18 126/75 99 11/17/18 10:00 36.4 C L 55 L 14 130/71 99 11/17/18 09:45 36.6 C 57 L 16 110/52 L 97 11/17/18 09:35 63 16 122/64 98 11/17/18 09:25 57 L 16 125/67 100 11/17/18 09:19 36.2 C L 80 16 115/58 L 99 Intake and Output 11/17/18 11/18/18 11/18/18 22:59 06:59 14:59 Intake Total 1531.667 / 4735.00 0 Output Total 975 / 1205 100 / 1205 Balance 556.667 / 3530.000 -100 / 3530.000 Intake: IV 731.667 / 1715.000 Nss 1000ML 1,0 00 ml @ 100 mls/ 456.667 / 830.000 hr IV .Q10H SC H Rx#:[id number] Vancomycin HCl 1,250 mg In Nss 275 / 275 250 ml @ 125 m ls/hr IV Q12H JAMES Rx#:[id number] Oral 800 / 1670 Output: Urine 800 / 800 Drain Output 175 / 400 100 / 400 Right Knee Hem ovac 175 / 400 100 / 400 Other: # Unmeasured Voi ds 1 2 Constitutional: WD/WN, vitals as above no acute distress Musculoskeletal: Right Leg: NVDI, calf SNT, negative andres sign. DP palpable, able to wiggle toes/ankle movement without difficulty. dressing clean dry and intact. Results & Data Vital Signs (Past 12 Hours) Vital Signs Temp Pulse Resp BP Pulse Ox 11/18/18 03:22 36.6 C 62 16 149/77 H 99 11/17/18 23:02 36.5 C 67 16 136/71 97 11/17/18 19:33 36.4 C L 64 18 124/63 99 Laboratory Results Laboratory Results WBC 4.36 K/uL (4.8-10.8) L 11/18/18 05:56 RBC 3.59 M/uL (4.7-6.1) L 11/18/18 05:56 Hgb 10.9 g/dL (14.0-18.0) L 11/18/18 05:56 Hct 31.7 % (42-52) L 11/18/18 05:56 MCV 88.3 fL (80-100) 11/18/18 05:56 MCH 30.4 pg (25-34) 11/18/18 05:56 MCHC 34.4 g/dL (32-36) 11/18/18 05:56 RDW Std Deviation 44.8 fL (36.4-46.3) 11/18/18 05:56 RDW Coeff of Tripp 13.7 % (11.5-14.5) 11/18/18 05:56 Plt Count 178 K/uL (130-400) 11/18/18 05:56 MPV 9.2 fL (7.4-10.4) 11/18/18 05:56 Immature Gran % (Auto) 0.0 % 10/23/18 11:27 Neut % (Auto) 60.3 % 10/23/18 11:27 Lymph % (Auto) 28.3 % 10/23/18 11:27 [place] % (Auto) 7.5 % 10/23/18 11:27 Eos % (Auto) 3.6 % 10/23/18 11:27 Baso % (Auto) 0.3 % 10/23/18 11:27 Immature Gran # (Auto) 0.00 K/uL (0.00-0.02) 10/23/18 11:27 Neut # (Auto) 2.18 K/uL (1.4-6.5) 10/23/18 11:27 Lymph # (Auto) 1.02 K/uL (1.2-3.4) L 10/23/18 11:27 [place] # (Auto) 0.27 K/uL (0.11-0.59) 10/23/18 11:27 Eos # (Auto) 0.13 K/uL (0-0.5) 10/23/18 11:27 Baso # (Auto) 0.01 K/uL (0-0.2) 10/23/18 11:27 PT 9.9 Seconds (9.0-12.0) 10/23/18 11:27 INR 1.0 (0.9-1.1) 10/23/18 11:27 APTT 23.8 Seconds (21.0-31.0) 10/23/18 11:27 PTT Ratio 0.9 10/23/18 11:27 Sodium 138 mmol/L (136-145) 10/23/18 11:27 Potassium 4.4 mmol/L (3.5-5.1) 10/23/18 11:27 Chloride 102 mmol/L (98-107) 10/23/18 11:27 Carbon Dioxide 30 mmol/L (21-32) 10/23/18 11:27 Anion Gap 6.0 (3-11) 10/23/18 11:27 BUN 13 mg/dl (7-18) 10/23/18 11:27 Creatinine 1.03 mg/dl (0.6-1.4) 10/23/18 11:27 Est Cr Clr Drug Dosing 75.4 ml/min 10/23/18 11:27 Est GFR ( Amer) 86.1 10/23/18 11:27 Est GFR (Non-Af Amer) 74.3 10/23/18 11:27 BUN/Creatinine Ratio 12.7 (10-20) 10/23/18 11:27 Glucose 99 mg/dl (70-99) 10/23/18 11:27 Estimat Average Glucose 108 mg/dl 10/23/18 11:27 Hemoglobin A1c 5.4 % (4.5-5.6) 10/23/18 11:27 Calcium 9.2 mg/dl (8.5-10.1) 10/23/18 11:27 Albumin 4.0 gm/dl (3.4-5.0) 10/23/18 11:27 Urine Color Yellow 10/23/18 11:27 Urine Appearance Clear (Clear) 10/23/18 11:27 Urine pH 7.0 (4.5-7.5) 10/23/18 11:27 Ur Specific [place] 1.013 (1.000-1.030) 10/23/18 11:27 Urine Protein Negative (Negative) 10/23/18 11:27 Urine Glucose (UA) Negative (Negative) 10/23/18 11:27 Urine Ketones Negative (Negative) 10/23/18 11:27 Urine Blood Negative (Negative) 10/23/18 11:27 Urine Nitrite Negative (Negative) 10/23/18 11:27 Urine Bilirubin Negative (Negative) 10/23/18 11:27 Urine Urobilinogen Negative (Negative) 10/23/18 11:27 Ur Leukocyte Esterase Negative (Negative) 10/23/18 11:27 Blood Type B Positive 10/23/18 11:27 Antibody Screen NEGATIVE 10/23/18 11:27 Diagnostic Findings XR knee RT 2V routine CLINICAL HISTORY: 68 years-old Male presenting with Surgical Post Op. TECHNIQUE: Frontal and crosstable lateral views of the right knee were obtained. COMPARISON: None. FINDINGS: Postsurgical changes of total right knee arthroplasty with patellar resurfacing. Expected intra-articular and soft tissue emphysema. A surgical drain is in place. No malalignment. No periprosthetic fracture or lucency. IMPRESSION: Expected postsurgical changes status post total right knee arthroplasty with patellar resurfacing.
[2018-11-18 07:15] LABS: BUN Creatinine Ratio 13.3 (10-20); Calcium 8.3 mg/dl (8.5-10.1); Est GFR (African American) 102.8; Est GFR (Non-African American) 88.7; Potassium 4.1 mmol/L (3.5-5.1)
[2018-11-18] MEDS: MULTIVITAMIN TAB PO SCH (08:10)
[2018-11-18] MEDS: ASPIRIN 81 MG ECTAB PO SCH ×2 (08:10→20:37)
[2018-11-18] MEDS: DOCUSATE SODIUM 100 MG CAP PO SCH ×2 (08:11→20:32)
--- NOTE | 2018-11-18 09:26 | Anesthesiology Progress Note ---
Date of Service November 18, 2018 Anesthesia Post Procedure Vital Signs Vital Signs: Temp Pulse Pulse Resp BP Pulse Ox 11/18/18 07:10 36.8 C 66 18 161/88 H 98 11/18/18 03:22 36.6 C 62 16 149/77 H 99 11/17/18 23:02 36.5 C 67 16 136/71 97 11/17/18 19:33 36.4 C L 64 18 124/63 99 11/17/18 15:14 36.4 C L 60 16 154/78 H 100 11/17/18 12:53 62 18 137/73 98 11/17/18 12:10 61 18 128/69 100 11/17/18 11:01 52 L 18 125/72 100 11/17/18 10:29 71 18 126/75 99 11/17/18 10:00 36.4 C L 55 L 14 130/71 99 11/17/18 09:45 36.6 C 57 L 16 110/52 L 97 11/17/18 09:35 63 16 122/64 98 Pain Intensity Right Knee: Pain Intensity: 5 Notes Mental Status: alert / awake / arousable and participated in evaluation Patient Amnestic to Procedure: Yes Nausea / Vomiting: adequately controlled Pain: adequately controlled Airway Patency, RR, SpO2: stable & adequate Hydration State: stable & adequate Neuraxial Anesthesia: was administered and sensory block is resolving Anesthetic Complications: no major complications apparent and Pt Satisfied with anesthetic care
[2018-11-18] MEDS ORDERED: ZOLPIDEM TARTRATE 10 MG TAB PO PRN (14:01)
[2018-11-18] MEDS: ALUMINUM/MAGNESIUM SUSP 30 ML UDC PO PRN (17:06)
[2018-11-18] MEDS: SENNA 8.6 MG TAB PO SCH (20:33)
[2018-11-18] MEDS: CHOLECALCIFEROL 1,000 UNITS TAB PO SCH (20:36)
[2018-11-18] MEDS: CeleBREX 200 MG CAP PO SCH (20:37)
[2018-11-19] MEDS: OXYCODONE HCL IR 5 MG TAB (IMMEDIATE RELEASE) PO PRN ×4 (00:20→13:30)
[2018-11-19] MEDS: ACETAMINOPHEN 500 MG TAB PO SCH ×2 (04:35→13:30)
[2018-11-19] MEDS: DOCUSATE SODIUM 100 MG CAP PO SCH (07:58)
[2018-11-19] MEDS: ASPIRIN 81 MG ECTAB PO SCH (07:59)
[2018-11-19] MEDS: CeleBREX 200 MG CAP PO SCH (07:59)
[2018-11-19] MEDS: MULTIVITAMIN TAB PO SCH (07:59)
[2018-11-19] MEDS: ALUMINUM/MAGNESIUM SUSP 30 ML UDC PO PRN (09:31)
--- NOTE | 2018-11-19 19:45 | Discharge Summary ---
Date of Service date of discharge: November 19, 2018 date of admission: 11-17-18 Admission HPI Per Admitting Provider Mr Isbell is a 68 year old male who is here for a follow up of right knee pain and presents for pre op prior to a right total knee replacement. He presents with pain, crepitus, stiffness, instability in his right knee. He states that the symptoms have been chronic non-traumatic and occur intermittently. currently the patient states that the symptoms are moderate-severe. His pain is described as aching and throbbing He rates his current pain as 3/10 and worst is 6/10. The symptoms are aggravated by repetitive activities, stairs, standing, kneeling and walking. In addition to right knee pain the patient is also experiencing decreased mobility, difficulty bending, pain after activity, limping and nighttime awakening. Patient is taking Oxycodone/APAP for pain at bedtime only. he has tried previous NSAIDs including IBU and Aleve. Principal Diagnosis right knee osteoarthritis Discharge Exam Vital Signs Temp Pulse Resp BP Pulse Ox 11/19/18 13:40 36.8 C 81 16 150/71 H 96 11/19/18 06:25 36.8 C 81 16 150/71 H 96 11/19/18 01:05 144/82 H 11/18/18 23:09 37.3 C 85 16 171/74 H 98 Intake and Output 11/19/18 11/19/18 11/19/18 06:59 14:59 22:59 Output Total 750 / 925 Balance -750 / -375 Output: Urine 750 / 750 Other: # Unmeasured Voids 1 Weight 85.36 kg Patient Weight 11/20/18 06:59 Weight 85.36 kg Constitutional WD/WN, vitals as above no acute distress Musculoskeletal right knee: NVDI, calf SNT, negative andres sign. DP palpable, able to wiggle toes/ankle movement without difficulty. MARVIN dressing clean dry and intact. expected post-operative bruising noted. Discharge Data Allergies Allergy/AdvReac Type Severity Reaction Status Date / Time cephalexin Allergy Intermediate SOB Verified 11/17/18 05:43 prednisone Allergy Unknown SOB Verified 11/17/18 05:43 clindamycin AdvReac Severe C. DIFF Verified 11/17/18 05:43 azelastine [From Astelin] AdvReac severe Verified 11/17/18 05:43 congestion Consultations 11/17/18 09:58 Consult Case Management - Discharge Planning Routine Procedures Performed Operation Date: 11/17/18 07:15 Actual Procedures p Right Total Knee Arthroplasty(Right) - Epi Sorto DO Ordered Studies 11/17/18 05:00 US - OR guided needle placemen Routine Hospital Course (1) Status post total right knee replacement: POD #1 s/p Right TKA pt/ot dvt proph with TALA/SCD/ASA plan for d/c home with HHPT Total Time Total Time Spent Total Time Spent (In Minutes): 20 Total Time Includes: Examination of the Patient, Discharge Planning, Medication Reconciliation and Communication With Other Providers Discharge Plan Discharge Items Patient Disposition: Home - Home Health Services Reason For Visit: RIGHT KNEE OSTEOARTHRITIS Discharge Diagnosis: Right Knee Osteoarthritis Activity: Per Instructions section Weightbearing: Right weightbearing Weightbearing Comment: as tolerated with walker Non-emergency contact: Surgeon Call non-emergency contact if: your pain is not controlled, your temperature is above 101.5, your wound has increased redness and your wound has increased drainage Follow-up/Referrals: George Slaughter III, MD [Primary Care Provider] - Diet: Regular Addtl Attending Provider Instructions: ACTIVITY RECOMMENDATIONS: SELF CARE INSTRUCTIONS AFTER TOTAL KNEE REPLACEMENT A. You may need to continue a physical therapy program after discharge from the hospital. There are several options available to you. Your doctor will assist you in selecting the best one for you. 1. An out-patient facility 2 to 3 times a week for therapy or home therapy. 2. Continue working on all exercises taught to you in the hospital. Your goals should be to increase bending of your knee to 90 degrees and beyond and to fully straighten your knee. B. You may progress at your own pace from walking with a walker or crutches to a cane; then to no assistive devices. C. Make walking a part of your daily routine. Be up as much as comfortable with rest periods throughout the day. Rest with leg elevation is very important. Use the ice wrap frequently for the first 3-4 weeks. D. There are no restrictions on activities. You may ride in a car, shop, participate in strategic debriefing specialist and all social activities. E. Wear the long elastic stockings (TALA hose) 20 hours a day for 2 weeks after surgery. They can be removed several times a day for laundering and for a bath. F. You may shower, no tub baths until cleared by your doctor. SPECIAL CARE INSTRUCTIONS: VERY IMPORTANT TO READ AND REVIEW A. There are a few signs you need to watch for after you are home. Call [facility] if you notice any of the followin. Increased severe knee pain. Some pain is expected especially when you exercise. 2. Increased swelling in your leg or knee; pain or swelling of the calf muscle in either lower leg. 3. Any fluid drainage from the incision. 4. Shortness of breath or chest pain. B. Please call [facility] at if you have any concerns or questions about your operation or recovery. The doctor or his nurse will return your call promptly. C. You must take antibiotics before dental work, bladder, bowel or other bragg rgery. Your doctor will provide you with a permanent care to carry describing this precaution. IMPORTANT: * REMEMBER TO TAKE ASPIRIN, 81 MG, TWICE DAILY FOR 4 WEEKS UNLESS OTHERWISE DIRECTED. THIS IS YOUR BLOOD THINNER. * HIGH RISK PATIENTS MAY BE PRESCRIBED A STRONGER BLOOD THINNER. THIS WILL BE PROVIDED AT DISCHARGE. * CALL IF INCREASED PAIN, REDNESS, DRAINAGE OR FEVER GREATER THAT 101. * WEAR TALA HOSE 20 HOURS PER DAY FOR 2 WEEKS. * DERMABOND Prineo- This is a mesh tape dressing that is covered with glue. It should remain in place until the incision is properly healed, usually 10-14 days. This dressing is designed to naturally slough off. You may trim the excess mesh tape as it peels off. Incision may be briefly wet in a shower. Dry immediately by blotting with a clean, dry towel. Do not bath or swim until instructed by your doctor. Do not scratch, rub, or pick at the dressing. Do not apply any topical ointments or lotions until dressing is completely removed and/or instructed by your doctor. There may be a small piece of suture material at one end of your incision. Do not pull or trim this. If it is bothersome or catching on clothing, you may cover it with a band-aid. IF INCISION IS LEAKING THROUGH DRESSING, CALL THE OFFICE . FOLLOW UP VISIT: If appointment is not already scheduled: Please call [facility] to make a follow-up appointment for 2 weeks after your surgery at . Stand-Alone Forms: [facility] Medications and DC Order Prescriptions: New acetaminophen [Tylenol Extra Strength] 500 mg Tablet 1,000 mg PO Q8 7 Days Qty: 42 RF: 0 aspirin [Ecotrin Low Strength] 81 mg Tablet,Delayed Release (Dr/Ec) 81 mg PO BID 30 Days Qty: 60 RF: 0 sennosides [Senokot] 8.6 mg Tablet 17.2 mg PO HS Qty: 30 RF: 0 oxycodone 5 mg Tablet 5 mg PO Q6H PRN (Reason: pain) Qty: 30 RF: 0 sulfamethoxazole-trimethoprim [Bactrim DS] 800-160 mg tablet 1 tab PO Q12H Qty: 14 RF: 0 Continued fluticasone propionate 50 mcg/actuation spray,suspension 2 sprays intranasal DAILY PRN (Reason: Allergy Symptoms) Qty: 1 RF: 0 multivitamin Tablet 1 tab PO QPM RF: 0 sodium chloride 1 gram Tablet 1 g PO BID RF: 0 pantoprazole 40 mg tablet,delayed release (DR/EC) 40 mg PO QAM RF: 0 furosemide 20 mg tablet 20 mg PO QAM RF: 0 cholecalciferol (vitamin D3) 1,000 unit Tablet 1,000 unit PO QPM RF: 0 Discharge Orders: Discharge Order (Routine); Ordered 11/19/18 Ordered By: Hermes Leahy/Other Patient Handouts: Surgery Prevent DVT After, Replacement Total Knee Dc Admission Data Admit Date/Time: 11/17/18 09:22 Attending Provider: Epi Sorto Admit Provider: Epi Sorto Primary Care Provider: George Slaughter III Other Interventions: Discharge Summary Assessment (RN) Last Done: 11/19/18 13:40 DC Date/Time DO NOT enter until pt leaves facility: 11/19/18 16:23
== END 2018-11-19 16:23 | disposition home health service (06) | DRG 470 ==
LOC: ASU 04:50 → 3E 09:22

== ENCOUNTER 2020-03-15 17:02 | Inpatient (IN) ==
--- NOTE | 2020-03-15 16:55 | Emergency Department Note ---
Impression & Plan TIA (transient ischemic attack), Acute hyponatremia, Expressive aphasia ED Provider Note NAME: ELIZABETH RECINOS AGE: 70 SEX: M : 1950 ARRIVES VIA: Ambulance INFORMANT: Patient ED PROVIDER(S): Stanley Marrufo DO CHIEF COMPLAINT: Expressive aphasia and right facial numbness HPI: Patient is a 70-year-old male who presents to the ER for right facial numbness which started about 45 minutes ago. He admits he was driving back home and became dizzy and had pain on the left side of his head. He felt some numbness on the left side of his head as well. Shortly after that he started to have trouble talking. He knew what he wanted to get out but could not get the words out. He denied any weakness or numbness in his arms or legs. He notes his symptoms gradually improved. He still has a mild headache on the left side. He was seen and evaluated by EMS and brought in for further work-up. ROS: See above HPI for pertinent positives & negatives. A total of 10 systems reviewed and were otherwise negative. PAST MEDICAL HISTORY:See Below PAST SURGICAL HISTORY:See Below FAMILY HISTORY:See Below SOCIAL HISTORY:See Below HOME MEDICATIONS:See Below ALLERGIES:See Below VITALS:See Below PHYSICAL EXAMINATION: GENERAL: Sitting up in bed, alert, well appearing, well nourished, no distress, non-toxic EYE EXAM: normal conjunctiva. PERRL and EOM's intact. OROPHARYNX: no exudate, no erythema, lips, buccal mucosa, and tongue normal and mucous membranes are moist NECK: supple, no nuchal rigidity, no adenopathy, non-tender LUNGS: Clear to auscultation. Normal chest wall mechanics HEART: no murmurs, S1 normal and S2 normal ABDOMEN: abdomen soft, non-tender, normo-active bowel sounds, no masses, no rebound or guarding. UPPER EXTREMITIES: upper extremities are grossly normal. LOWER EXTREMITIES: No pitting edema. NEURO EXAM: Normal sensorium, cranial nerves II-XII intact, normal speech, no weakness of arms, no weakness of legs. No drift. Finger to nose intact. Gross sensation intact. MEDICAL DECISION MAKING: Patient is a well-appearing 7-year-old male who presents the ER for numbness in his face associated with expressive aphasia. Upon presentation he had complete resolution of the symptoms.IV was established blood work was obtained. Labs show no significant leukocytosis or anemia. INR was unremarkable. BMP with mild Hyponatremia. LFTs bilirubin magnesium was unremarkable. Troponin was negative. Covid was negative. CT head as well as CT angio of the head and neck were negative. Chest x-ray was unremarkable. EKG was nondiagnostic. Patient was updated bedside. I did discuss with Pilar telestroke and as He had no deficit on my exam did not need to complete evaluation as he was not intact candidate for TPA. He was given fluids and aspirin instead and admitted to the hospital. Triage Nursing notes reviewed. Limited review of prior medical records performed Vital Signs: reviewed and remarkable for HTN Differential diagnosis: Differential Diagnosis includes but is not limited to ischemic Stroke, hemorrhagic stroke, bells palsy, mass, neoplasm, migraine headache, seizure, subarachnoid hemorrhage, TIA, and transient global amnesia. ER treatment provided: See below Diagnostics interpreted by me: ECG: Sinus rhythm rate 82 Normal axis No PVCs QTC 439 Cardiac Monitoring: An order was placed for continuous cardiac monitoring. The monitor shows a rate of 65 with sinus rhythm. Laboratory studies: As stated above and show below. Imaging studies: CT as well as CT angio of the head and neck were negative Consultation(s): Discussed with hospitalist for further evaluation Procedures: none Critical Care: None Past Med/Surg History Medical History (Updated 03/15/20 @ 21:36 by Stanley Marrufo DO) Anemia per records Celis esophagus Dyslipidemia Per records Emphysema lung per 12/[address] GERD (gastroesophageal reflux disease) controlled Hearing deficit Hiatal hernia Hypertension Per records Hyponatremia Impaired fasting glucose Per records Lumbar spondylosis Osteoarthritis SIADH (syndrome of inappropriate ADH production) Sodium 133 on 02/03/20 labs, managed with daily sodium chloride/lasix, follows with [facility] nephro (Dr. Bethea) Surgical History History of colonoscopy History of esophagogastroduodenoscopy (EGD) EGD: 12/13/19: MAC sedation at [facility] History of meniscectomy of left knee History of sinus surgery History of surgical removal of ganglion cyst right wrist History of tooth extraction History of total knee replacement Right TKA: 09/16/18: SAB x 1 attempt at L3/L4 + PNB at [facility] Hx of appendectomy Hx of cholecystectomy Hx of shoulder surgery R/L Hx of tonsillectomy Family History Mother FHx: colon cancer Colorectal cancer Father FHx: lung cancer Lung cancer Grandmother (Maternal) FHx: lung cancer Lung cancer Brother FHx: cancer Grandfather (Maternal) FHx: cancer Denies family history of Ovarian cancer Prostate cancer Myocardial infarction Breast cancer Social History Smoking Status: Former smoker Age Started Using Tobacco: 14; Second Hand Exposure: Yes (IN CHILDHOOD); Hx Alcohol Use: Yes Alcohol type: beer Hx Substance Use: No Preferred Language: Persian Communication Ability: Effective Visual Impairment: No Limitations Hearing Ability: Normal 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 diff Verified 03/15/20 18:31 azelastine [From Astelin] AdvReac Intermediate severe Verified 03/15/20 18:31 congestion Home Meds Home Medications Medication Instructions Recorded Confirmed cholecalciferol (vitamin D3) 1,000 unit PO QPM 05/22/18 03/15/20 pantoprazole 40 mg PO QAM 05/22/18 03/15/20 sodium chloride 1 g PO BID 05/22/18 03/15/20 Centrum 1 tab PO QAM 09/20/19 03/15/20 Previous Rx's Medication Instructions Recorded furosemide 20 mg tablet 20 mg PO QAM #90 tab 10/01/19 Results & Data (ED) Vital Signs Vital Signs - 24 hr 03/15/20 17:17 03/15/20 17:18 03/15/20 17:19 Temperature 36.7 C Temperature Source Oral Pulse Rate 84 79 80 Pulse Rate from SpO2 Sensor 83 82 Respiratory Rate 18 23 Blood Pressure 193/102 H 193/102 H Blood Pressure Mean 129 132 Pulse Oximetry 97 100 99 Oxygen Delivery Method Room Air Sepsis Recent Fever Within 48 Hours No Sepsis New/Unexplained Change in Mental Status N/A Sepsis Action Taken by Nursing No Action Required 03/15/20 17:20 03/15/20 17:25 03/15/20 17:26 Temperature Temperature Source Pulse Rate 81 78 77 Pulse Rate from SpO2 Sensor 80 77 77 Respiratory Rate 17 16 Blood Pressure 162/82 H Blood Pressure Mean 104 Pulse Oximetry 99 99 100 Oxygen Delivery Method Sepsis Recent Fever Within 48 Hours Sepsis New/Unexplained Change in Mental Status Sepsis Action Taken by Nursing 03/15/20 17:30 03/15/20 17:31 03/15/20 18:00 Temperature Temperature Source Pulse Rate 73 79 77 Pulse Rate from SpO2 Sensor 74 76 78 Respiratory Rate 20 22 18 Blood Pressure 176/79 H Blood Pressure Mean 122 Pulse Oximetry 99 100 97 Oxygen Delivery Method Sepsis Recent Fever Within 48 Hours Sepsis New/Unexplained Change in Mental Status Sepsis Action Taken by Nursing 03/15/20 18:30 Temperature Temperature Source Pulse Rate 72 Pulse Rate from SpO2 Sensor 71 Respiratory Rate 14 Blood Pressure 148/85 H Blood Pressure Mean 96 Pulse Oximetry 99 Oxygen Delivery Method Sepsis Recent Fever Within 48 Hours Sepsis New/Unexplained Change in Mental Status Sepsis Action Taken by Nursing Laboratory Data Result diagrams: 03/15/20 17:18 03/15/20 17:18 Lab Results 03/15/20 03/15/20 03/15/20 Range/Units 17:17 17:18 17:18 WBC 7.28 (4.8-10.8) K/uL RBC 4.26 L (4.7-6.1) M/uL Hgb 13.0 L (14.0-18.0) g/dL Hct 36.6 L (42-52) % MCV 85.9 (80-100) fL MCH 30.5 (25-34) pg MCHC 35.5 (32-36) g/dL RDW Std Deviation 41.6 (36.4-46.3) fL RDW Coeff of Tripp 13.2 (11.5-14.5) % Plt Count 265 (130-400) K/uL MPV 8.6 (7.4-10.4) fL Immature Gran % (Auto) 0.4 % Neut % (Auto) 66.1 % Lymph % (Auto) 19.9 % Hunt % (Auto) 11.7 % Eos % (Auto) 1.8 % Baso % (Auto) 0.1 % Neut # (Auto) 4.81 (1.4-6.5) K/uL Lymph # (Auto) 1.45 (1.2-3.4) K/uL Hunt # (Auto) 0.85 H (0.11-0.59) K/uL Eos # (Auto) 0.13 (0-0.5) K/uL Baso # (Auto) 0.01 (0-0.2) K/uL Immature Gran # (Auto) 0.03 H (0.00-0.02) K/uL PT 10.3 (9.0-12.0) Seconds INR 1.0 (0.9-1.1) APTT 26.7 (21.0-31.0) Seconds PTT Ratio 1.0 Sodium (136-145) mmol/L Potassium (3.5-5.1) mmol/L Chloride (98-107) mmol/L Carbon Dioxide (21-32) mmol/L Anion Gap (3-11) BUN (7-18) mg/dl Creatinine (0.6-1.4) mg/dl Est Cr Clr Drug Dosing ml/min Est GFR ( Amer) Est GFR (Non-Af Amer) BUN/Creatinine Ratio (10-20) Glucose (70-99) mg/dl POC Glucose 87 (70-99) mg/dl Calcium (8.5-10.1) mg/dl Magnesium (1.8-2.4) mg/dl Total Bilirubin (0.2-1) mg/dl AST (15-37) U/L ALT (12-78) U/L Alkaline Phosphatase (45-117) U/L Troponin I (0-0.045) ng/ml Total Protein (6.4-8.2) gm/dl Albumin (3.4-5.0) gm/dl Globulin (2.5-4.0) gm/dl Albumin/Globulin Ratio (0.9-2) COVID-19 Eval Order SARS-CoV-2, RNA, NAAT (NEGATIVE) 03/15/20 03/15/20 03/15/20 Range/Units 17:18 18:30 18:30 WBC (4.8-10.8) K/uL RBC (4.7-6.1) M/uL Hgb (14.0-18.0) g/dL Hct (42-52) % MCV (80-100) fL MCH (25-34) pg MCHC (32-36) g/dL RDW Std Deviation (36.4-46.3) fL RDW Coeff of Tripp (11.5-14.5) % Plt Count (130-400) K/uL MPV (7.4-10.4) fL Immature Gran % (Auto) % Neut % (Auto) % Lymph % (Auto) % Hunt % (Auto) % Eos % (Auto) % Baso % (Auto) % Neut # (Auto) (1.4-6.5) K/uL Lymph # (Auto) (1.2-3.4) K/uL Hunt # (Auto) (0.11-0.59) K/uL Eos # (Auto) (0-0.5) K/uL Baso # (Auto) (0-0.2) K/uL Immature Gran # (Auto) (0.00-0.02) K/uL PT (9.0-12.0) Seconds INR (0.9-1.1) APTT (21.0-31.0) Seconds PTT Ratio Sodium 128 L (136-145) mmol/L Potassium 3.6 (3.5-5.1) mmol/L Chloride 94 L (98-107) mmol/L Carbon Dioxide 29 (21-32) mmol/L Anion Gap 5.0 (3-11) BUN 18 (7-18) mg/dl Creatinine 0.84 (0.6-1.4) mg/dl Est Cr Clr Drug Dosing 91.1 ml/min Est GFR ( Amer) 102.8 Est GFR (Non-Af Amer) 88.7 BUN/Creatinine Ratio 21.0 H (10-20) Glucose 91 (70-99) mg/dl POC Glucose (70-99) mg/dl Calcium 8.2 L (8.5-10.1) mg/dl Magnesium 2.3 (1.8-2.4) mg/dl Total Bilirubin 0.4 (0.2-1) mg/dl AST 7 L (15-37) U/L ALT 21 (12-78) U/L Alkaline Phosphatase 93 (45-117) U/L Troponin I < 0.015 (0-0.045) ng/ml Total Protein 6.5 (6.4-8.2) gm/dl Albumin 3.7 (3.4-5.0) gm/dl Globulin 2.8 (2.5-4.0) gm/dl Albumin/Globulin Ratio 1.3 (0.9-2) COVID-19 Eval Order Covid19 IDNow atMMEC SARS-CoV-2, RNA, NAAT NEGATIVE (NEGATIVE) Administered Medications Discontinued Medications Ioversol (Optiray 320 125ml) 119 ml IV ONCE ONE Stop: 03/15/20 17:12 Last Admin: 03/15/20 17:11 Dose: 119 ml Documented by: [id number] Discharge Plan Visit Data Chief Complaint: Stroke Alert Stated Complaint: STROKE SX ED Provider: Stanley Marrufo Discharge Problem: TIA (transient ischemic attack), Acute hyponatremia, Expressive aphasia Patient Disposition: Admitted As Inpatient Discharge Instructions Interventions: ED Discharge Assessment Last Done: 03/15/20 21:17
[2020-03-15] MEDS ORDERED: OPTIRAY 320 125ml IV ONE (17:11)
--- NOTE | 2020-03-15 17:13 | CT Scan Report ---
CT head/brain wo con CLINICAL HISTORY: Stroke Like Symptoms COMPARISON STUDY: 05/22/2018 TECHNIQUE: Axial CT of the brain is performed from the vertex to the skull base. IV contrast was not administered for this examination. A dose lowering technique was utilized adhering to the principles of ALARA. CT DOSE: FINDINGS: No intra or extra-axial mass lesions are visualized. There is no CT evidence of acute cortical infarc tion. There is no evidence of midline shift. There is no acute hemorrhage. No calvarial fractures ar e visualized. There are minor white matter hypodensities likely on a small vessel basis. There is no evidence of pathologic ventricular dilatation. There is no evidence of acute sinusitis IMPRESSION: No acute intracranial findings ACT 112: Negative or not required by law. Electronically signed by: Adiel Adkins M.D. 03/15/2020 5:11 PM
--- NOTE | 2020-03-15 17:21 | CT Scan Report ---
CT angio neck with con CLINICAL HISTORY: Stroke Like Symptoms COMPARISON STUDY: 05/22/2018 TECHNIQUE: CT angiography was performed from the aortic arch to the skull base. MIP imaging was perfo rmed. The patient was scanned in a dynamic helical fashion during intravenous administration of 119 c c of Optiray 320. A dose lowering technique was utilized adhering to the principles of ALARA. CT DOSE: 1169.19 mGy.cm Technique: CT angiogram of the carotid and vertebral arteries was obtained using intravenous contrast and 3-D reconstruction. NASCET criteria was utilized. Findings: There are apical blebs. There are atheromatous changes the level the right carotid bulb. There is no evidence of hemodynamica lly significant internal carotid stenosis. There is no dissection or occlusion. There are atheromatous changes present the level of the left carotid bulb. There is no evidence of he modynamically significant internal carotid artery stenosis. There is no occlusion or dissection. There is no evidence of hemodynamically significant vertebral stenosis. There is no evidence of verte bral dissection. The basilar somewhat diminutive. This remain similar to the prior study and may be d evelopmental. IMPRESSION: No evidence of hemodynamically significant carotid or vertebral artery stenosis. No evidence of disse ction. ACT 112: Negative or not required by law. Electronically signed by: Adiel Adkins M.D. 03/15/2020 5:20 PM
--- NOTE | 2020-03-15 17:24 | CT Scan Report ---
CT angio head w con CLINICAL HISTORY: Stroke Like Symptoms TECHNIQUE: CT angiography of the head was performed in a dynamic helical fashion during intravenous a dministration of 119 cc cc of Optiray 320. MIP imaging was performed. A dose lowering technique was u tilized adhering to the principles of ALARA. CT DOSE: COMPARISON STUDY: May 2018 FINDINGS: There are no lesion suspicious for aneurysm. There are no major intracranial branch occlusi ons. The dural venous sinuses appear patent. The basilar artery is somewhat diminutive. There are origins of the posterior cerebral arteries . IMPRESSION: 1. No significant abnormalities. ACT 112: Negative or not required by law. Electronically signed by: Adiel Adkins M.D. 03/15/2020 5:22 PM
[2020-03-15 17:28] LABS: Basophils # (auto) 0.01 K/uL (0-0.2); Basophils % (auto) 0.1 %; Eosinophils # (auto) 0.13 K/uL (0-0.5); Eosinophils % (auto) 1.8 %; Hematocrit (blood only) 36.6 % (42-52); Immature Granulocytes # (auto) 0.03 K/uL (0.00-0.02); Immature Granulocytes % (auto) 0.4 %; Lymphocytes # (auto) 1.45 K/uL (1.2-3.4); Lymphocytes % (auto) 19.9 %; Mean Corpuscular Hemoglobin 30.5 pg (25-34); Mean Corpuscular Hgb Conc 35.5 g/dL (32-36); Mean Corpuscular Volume 85.9 fL (80-100); Mean Platelet Volume 8.6 fL (7.4-10.4); Monocytes # (auto) 0.85 K/uL (0.11-0.59); Monocytes % (auto) 11.7 %; Neutrophils # (auto) 4.81 K/uL (1.4-6.5); Neutrophils % (auto) 66.1 %; Platelet Count 265 K/uL (130-400); RDW Coefficient of Variation 13.2 % (11.5-14.5); RDW Standard Deviation 41.6 fL (36.4-46.3); Red Blood Count 4.26 M/uL (4.7-6.1); White Blood Count 7.28 K/uL (4.8-10.8)
--- NOTE | 2020-03-15 17:29 | XRay Report ---
XR chest 1V portable CLINICAL HISTORY: Stroke Like Symptoms COMPARISON STUDY: 05/22/2018 FINDINGS: The heart is the upper limits of normal in size. There is no failure. There is no focal pul monary consolidation. There are no pleural effusions. There is a prominent left cardiophrenic angle f at pad.[ IMPRESSION: No active disease in the chest. ACT 112: Negative or not required by law. Electronically signed by: Adiel Adkins M.D. 03/15/2020 5:28 PM
[2020-03-15 17:51] LABS: Partial Thromboplastin Time 26.7 Seconds (21.0-31.0); Prothrombin Time 10.3 Seconds (9.0-12.0)
[2020-03-15 17:56] LABS: Alanine Aminotransferase 21 U/L (12-78); Albumin Level 3.7 gm/dl (3.4-5.0); Aspartate Aminotransferase 7 U/L (15-37); Blood Urea Nitrogen 18 mg/dl (7-18); Calcium 8.2 mg/dl (8.5-10.1); Carbon Dioxide 29 mmol/L (21-32); Chloride 94 mmol/L (98-107); Creatinine Clr Calc Pharmacy 91.1 ml/min; Est GFR (African American) 102.8; Est GFR (Non-African American) 88.7; Glucose 91 mg/dl (70-99); Magnesium 2.3 mg/dl (1.8-2.4); Potassium 3.6 mmol/L (3.5-5.1); Sodium 128 mmol/L (136-145)
[2020-03-15 18:01] LABS: Albumin Globulin Ratio 1.3 (0.9-2); Alkaline Phosphatase 93 U/L (45-117); Bilirubin,Total 0.4 mg/dl (0.2-1); Globulin 2.8 gm/dl (2.5-4.0); Total Protein 6.5 gm/dl (6.4-8.2); Troponin I < 0.015 ng/ml (0-0.045)
--- NOTE | 2020-03-15 20:30 | History & Physical Report ---
Date of Service March 15, 2020 Assessment & Plan (1) TIA (transient ischemic attack): Fred Isbell is a 70 yo male with a PMHx of Celis esophagus, chronic sinusitis, HTN, dyslipidemia, and SIADH who presented to the ED on 03/15/20 after an episode of expressive aphasia and is admitted for TIA/stroke evaluation. TIA - Patient's speech symptoms resolved w/ episode lasting ~20 minutes - He does have a persistent 2/10 headache, intermittent lightheadedness, and n ausea - Head CT 03/15/20: No acute intracranial findings - Head CTA 03/15/20: No significant abnormalities. - Neck CTA 03/15/20: No evidence of hemodynamically significant carotid or vertebral artery stenosis. No evidence of dissection. - Consult neurology - TTE ordered - Brain MRI w/wo contrast ordered - Continue neuro checks per protocol and NIHSS stroke scale daily - CBC qAM - HgbA1c ordered for tomorrow morning - Fasting lipid profile ordered for tomorrow morning - Patient started on ASA 81mg po daily, atorvastatin 40mg po daily, and plavix 75mg po daily Hx of alcohol use - Patient reports daily alcohol use of ~2 beer per day - Will monitor with AWSS - Ativan 1mg po prn ordered for AWSS of 6-10 SIADH - Per history - Hyponatremia at baseline treated with sodium chloride 1g po BID and furosemide 20mg po qAM - Continue home sodium chloride and furosemide as noted above - BMP qAM Hypertension: - Per history - Patient denies hx of HTN and is not on any anti-HTN at this time - Continue to monitor and will recommend outpatient follow up Dyslipidemia - Per history - Patient denies hx of dyslipidemia - Patient started on statin on admission as noted above - Morning fasting lipid profile ordered for tomorrow AM as noted above Barretts esophagus - Continue home protonix 40mg po daily Vitamin D Deficiency - Continue home Vitamin D3 1,000 units po daily FEN: Heart healthy diet, NPO after midnight in preparation for fasting lipid profile labs in AM DVT Ppx: SCDs Code status: Full code Dispo: medsurge/tele (2) SIADH (syndrome of inappropriate ADH production): (3) Hypertension: (4) Dyslipidemia: (5) Barretts esophagus: (6) Vitamin D deficiency: (7) Alcohol use: History of Present Illness Primary Care Provider: George Slaughter MD Fred Isbell is a 70 yo male with a PMHx of Celis esophagus, chronic sinusitis, HTN, dyslipidemia, and SIADH who presented to the ED on 03/15/20 after an episode of expressive aphasia. Patient states that at approximately 3:45 pm, he [place] he stopped at his mailbox and began to experience a left sided headache, confusion, processing difficulties, and trouble talking. Patient states that he was lightheaded and "couldn't think straight." Patient reports being aware that he was saying the wrong words for what he wanted to say. He did not have any focal weakness or difficulty with ambulation. Patient was able to get back into the car, take off the emergency break, drive the vehicle back up to the house/garage, walk up ~18 steps from the deck to the house, and upstairs to where his was working. He continued to have difficulty talking when trying to communicate with the regarding this episode. Patient's called EMS. Patient states that his symptoms lasted for ~15-20 minutes and upon EMS arrival, his symptoms were improving. He arrived to the ED on a stroke alert. Patient states that his symptoms have significantly improved and the speech difficulty has fully resolved. He does report a persistent bilateral temporal headache, rated at a 2/10, and described as "a slight pain." He also reports itzel e intermittent lightheadedness and mild nausea s/p administration of IV contrast for the head CT. Patient reports that he otherwise "feels completely back to normal" and he is hungry; last meal was lunch around 12pm and consisted of eggs, Guinean muffin, and tea. Patient denies a hx of similar episodes. He notes the only change in recent medication regimen was a 6-day steroid taper that he took for L groin strain (completed this taper 2 days ago). It is noted that patient stopped smoking ~15 years ago after a [id number] hx. He does drink alcohol regularly and drinks ~2 beer per day; denies hx of withdrawal. Allergies Allergy/AdvReac Type Severity Reaction Status Date / Time cephalexin Allergy Intermediate dyspnea Verified 03/15/20 18:31 prednisone Allergy Intermediate dyspnea Verified 03/15/20 18:31 clindamycin AdvReac Severe c. diff Verified 03/15/20 18:31 azelastine [From Astelin] AdvReac Intermediate severe Verified 03/15/20 18:31 congestion Home Medications Medication Instructions Recorded Confirmed Type cholecalciferol (vitamin D3) 1,000 unit PO QPM 05/22/18 03/15/20 History pantoprazole 40 mg PO QAM 05/22/18 03/15/20 History sodium chloride 1 g PO BID 05/22/18 03/15/20 History Centrum 1 tab PO QAM 09/20/19 03/15/20 History furosemide 20 mg tablet 20 mg PO QAM #90 tab 10/01/19 03/15/20 Rx Past Med/Surg History Medical History Anemia per records Celis esophagus Dyslipidemia Per records Emphysema lung per 12/[address] GERD (gastroesophageal reflux disease) controlled Hearing deficit Hiatal hernia Hypertension Per records Hyponatremia Impaired fasting glucose Per records Lumbar spondylosis Osteoarthritis SIADH (syndrome of inappropriate ADH production) Sodium 133 on 02/03/20 labs, managed with daily sodium chloride/lasix, [place] [facility] [place] Surgical History History of colonoscopy History of esophagogastroduodenoscopy (EGD) EGD: 12/13/19: MAC sedation at [facility] History of meniscectomy of left knee History of sinus surgery History of surgical removal of ganglion cyst right wrist History of tooth extraction History of total knee replacement Right TKA: 09/16/18: SAB x 1 attempt at L3/L4 + PNB at [facility] Hx of appendectomy Hx of cholecystectomy Hx of shoulder surgery R/L Hx of tonsillectomy Family History Mother FHx: colon cancer Colorectal cancer Father FHx: lung cancer Lung cancer Grandmother (Maternal) FHx: lung cancer Lung cancer Brother FHx: cancer Grandfather (Maternal) FHx: cancer Denies family history of Ovarian cancer Prostate cancer Myocardial infarction Breast cancer Social History Smoking Status: Former smoker Age Started Using Tobacco: 14; Second Hand Exposure: Yes (IN CHILDHOOD); Hx Alcohol Use: Yes Alcohol type: beer Hx Substance Use: No Preferred Language: Guinean Communication Ability: Effective Visual Impairment: No Limitations Hearing Ability: Normal 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 Beliefs That Will Affect Care: None marital status: Current Living Situation: Spouse current occupational status: retired Other Information That Helps Us Care for You: No Feels Safe at Home: Yes Safety Concerns: Feels Safe At This Time Childhood Exposure to Second-Hand Smoke: Yes Dental Care, Regularly: Yes Physical Activity Frequency: 3-4 Times per Week Assistive Devices: None Review of Systems Constitutional: no fever, no chills and no fatigue Ear, Nose, Mouth, Throat: + sinus pain/pressure (chronic); no dizziness and no sore throat Respiratory: no cough and no dyspnea Cardiovascular: no chest pain and no palpitations Gastrointestinal: no abdominal pain, no nausea, no vomiting and no diarrhea/loose stools Genitourinary: no dysuria and no difficulty urinating Musculoskeletal: no joint pain and no muscle weakness Neurologic: + headache(s), + abnormal speech and + confusion; no gait abnormality, no falls, no localized weakness, no paralysis, no loss of sensation, no tingling and no paresthesia Physical Exam Physical Exam: GENERAL: No acute distress. Well developed and well nourished. Vital signs reviewed. A/O x3. EYES: PERRLA. EOMI. Anicteric sclerae. HENT: Moist mucous membranes. No pharyngeal erythema or exudates. RESPIRATORY: Clear to auscultation bilaterally. No wheezing, rales, or rhonchi. CARDIOVASCULAR: Regular rate and rhythm. No murmurs. ABDOMEN: Soft, non-tender and non-distended. No palpable masses. Normal bowel sounds. EXTREMITIES: No edema. Non-tender. SKIN: Warm, dry. No rashes or lesions. NEUROLOGIC: No focal neurological deficits. CN II-XII grossly intact. Normal [id number]. 5/5 strength in BLE and BUE. Normal sensation throughout BUE and BLE. Normal speech. PSYCHIATRIC: Cooperative. Appropriate mood and affect. Results & Data Results & Data ([facility]) Vital Signs (Past 12 Hours) Vital Signs Temp Pulse Resp BP Pulse Ox 03/15/20 18:30 72 14 148/85 H 99 03/15/20 18:00 77 18 97 03/15/20 17:31 79 22 100 03/15/20 17:30 73 20 176/79 H 99 03/15/20 17:26 77 16 100 03/15/20 17:25 78 17 162/82 H 99 03/15/20 17:20 81 99 03/15/20 17:19 80 23 99 03/15/20 17:18 36.7 C 79 18 193/102 H 100 03/15/20 17:17 84 193/102 H 97 Laboratory Results Lab Results 03/15/20 03/15/20 03/15/20 Range/Units 17:17 17:18 17:18 WBC 7.28 (4.8-10.8) K/uL RBC 4.26 L (4.7-6.1) M/uL Hgb 13.0 L (14.0-18.0) g/dL Hct 36.6 L (42-52) % MCV 85.9 (80-100) fL MCH 30.5 (25-34) pg MCHC 35.5 (32-36) g/dL RDW Std Deviation 41.6 (36.4-46.3) fL RDW Coeff of Tripp 13.2 (11.5-14.5) % Plt Count 265 (130-400) K/uL MPV 8.6 (7.4-10.4) fL Immature Gran % (Auto) 0.4 % Neut % (Auto) 66.1 % Lymph % (Auto) 19.9 % [place] % (Auto) 11.7 % Eos % (Auto) 1.8 % Baso % (Auto) 0.1 % Neut # (Auto) 4.81 (1.4-6.5) K/uL Lymph # (Auto) 1.45 (1.2-3.4) K/uL [place] # (Auto) 0.85 H (0.11-0.59) K/uL Eos # (Auto) 0.13 (0-0.5) K/uL Baso # (Auto) 0.01 (0-0.2) K/uL Immature Gran # (Auto) 0.03 H (0.00-0.02) K/uL PT 10.3 (9.0-12.0) Seconds INR 1.0 (0.9-1.1) APTT 26.7 (21.0-31.0) Seconds PTT Ratio 1.0 Sodium (136-145) mmol/L Potassium (3.5-5.1) mmol/L Chloride (98-107) mmol/L Carbon Dioxide (21-32) mmol/L Anion Gap (3-11) BUN (7-18) mg/dl Creatinine (0.6-1.4) mg/dl Est Cr Clr Drug Dosing ml/min Est GFR ( Amer) Est GFR (Non-Af Amer) BUN/Creatinine Ratio (10-20) Glucose (70-99) mg/dl POC Glucose 87 (70-99) mg/dl Calcium (8.5-10.1) mg/dl Magnesium (1.8-2.4) mg/dl Total Bilirubin (0.2-1) mg/dl AST (15-37) U/L ALT (12-78) U/L Alkaline Phosphatase (45-117) U/L Troponin I (0-0.045) ng/ml Total Protein (6.4-8.2) gm/dl Albumin (3.4-5.0) gm/dl Globulin (2.5-4.0) gm/dl Albumin/Globulin Ratio (0.9-2) COVID-19 Eval Order SARS-CoV-2, RNA, NAAT (NEGATIVE) 03/15/20 03/15/20 03/15/20 Range/Units 17:18 18:30 18:30 WBC (4.8-10.8) K/uL RBC (4.7-6.1) M/uL Hgb (14.0-18.0) g/dL Hct (42-52) % MCV (80-100) fL MCH (25-34) pg MCHC (32-36) g/dL RDW Std Deviation (36.4-46.3) fL RDW Coeff of Tripp (11.5-14.5) % Plt Count (130-400) K/uL MPV (7.4-10.4) fL Immature Gran % (Auto) % Neut % (Auto) % Lymph % (Auto) % [place] % (Auto) % Eos % (Auto) % Baso % (Auto) % Neut # (Auto) (1.4-6.5) K/uL Lymph # (Auto) (1.2-3.4) K/uL [place] # (Auto) (0.11-0.59) K/uL Eos # (Auto) (0-0.5) K/uL Baso # (Auto) (0-0.2) K/uL Immature Gran # (Auto) (0.00-0.02) K/uL PT (9.0-12.0) Seconds INR (0.9-1.1) APTT (21.0-31.0) Seconds PTT Ratio Sodium 128 L (136-145) mmol/L Potassium 3.6 (3.5-5.1) mmol/L Chloride 94 L (98-107) mmol/L Carbon Dioxide 29 (21-32) mmol/L Anion Gap 5.0 (3-11) BUN 18 (7-18) mg/dl Creatinine 0.84 (0.6-1.4) mg/dl Est Cr Clr Drug Dosing 91.1 ml/min Est GFR ( Amer) 102.8 Est GFR (Non-Af Amer) 88.7 BUN/Creatinine Ratio 21.0 H (10-20) Glucose 91 (70-99) mg/dl POC Glucose (70-99) mg/dl Calcium 8.2 L (8.5-10.1) mg/dl Magnesium 2.3 (1.8-2.4) mg/dl Total Bilirubin 0.4 (0.2-1) mg/dl AST 7 L (15-37) U/L ALT 21 (12-78) U/L Alkaline Phosphatase 93 (45-117) U/L Troponin I < 0.015 (0-0.045) ng/ml Total Protein 6.5 (6.4-8.2) gm/dl Albumin 3.7 (3.4-5.0) gm/dl Globulin 2.8 (2.5-4.0) gm/dl Albumin/Globulin Ratio 1.3 (0.9-2) COVID-19 Eval Order Covid19 [facility] SARS-CoV-2, RNA, NAAT NEGATIVE (NEGATIVE) Diagnostic Findings CT head/brain wo con CLINICAL HISTORY: Stroke Like Symptoms COMPARISON STUDY: 05/22/2018 TECHNIQUE: Axial CT of the brain is performed from the vertex to the skull base. IV contrast was not administered for this examination. A dose lowering technique was utilized adhering to the principles of ALARA. CT DOSE: FINDINGS: No intra or extra-axial mass lesions are visualized. There is no CT evidence of acute cortical infarction. There is no evidence of midline shift. There is no acute hemorrhage. No calvarial fractures are visualized. There are minor white matter hypodensities likely on a small vessel basis. There is no evidence of pathologic ventricular dilatation. There is no evidence of acute sinusitis IMPRESSION: No acute intracranial findings ACT 112: Negative or not required by law. Electronically signed by: Adiel Adkins M.D. 03/15/2020 5:11 PM Dictated: 03/15/201709Transcribed: 03/15/201709 CT angio head w con CLINICAL HISTORY: Stroke Like Symptoms TECHNIQUE: CT angiography of the head was performed in a dynamic helical fashion during intravenous administration of 119 cc cc of Optiray 320. MIP imaging was performed. A dose lowering technique was utilized adhering to the principles of ALARA. CT DOSE: COMPARISON STUDY: May 2018 FINDINGS: There are no lesion suspicious for aneurysm. There are no major intracranial branch occlusions. The dural venous sinuses appear patent. The basilar artery is somewhat diminutive. There are origins of the posterior cerebral arteries. IMPRESSION: 1. No significant abnormalities. ACT 112: Negative or not required by law. Electronically signed by: Adiel Adkins M.D. 03/15/2020 5:22 PM Dictated: 03/15/201719Transcribed: 03/15/201719 CT angio neck with con CLINICAL HISTORY: Stroke Like Symptoms COMPARISON STUDY: 05/22/2018 TECHNIQUE: CT angiography was performed from the aortic arch to the skull base. MIP imaging was performed. The patient was scanned in a dynamic helical fashion during intravenous administration of 119 cc of Optiray 320. A dose lowering technique was utilized adhering to the principles of ALARA. CT DOSE: 1169.19 mGy.cm Technique: CT angiogram of the carotid and vertebral arteries was obtained using intravenous contrast and 3-D reconstruction. NASCET criteria was utilized. Findings: There are apical blebs. There are atheromatous changes the level the right carotid bulb. There is no evidence of hemodynamically significant internal carotid stenosis. There is no d issection or occlusion. There are atheromatous changes present the level of the left carotid bulb. There is no evidence of hemodynamically significant internal carotid artery stenosis. There is no occlusion or dissection. There is no evidence of hemodynamically significant vertebral stenosis. There is no evidence of vertebral dissection. The basilar somewhat diminutive. This remain similar to the prior study and may be developmental. IMPRESSION: No evidence of hemodynamically significant carotid or vertebral artery stenosis. No evidence of dissection. ACT 112: Negative or not required by law. Electronically signed by: Adiel Adkins M.D. 03/15/2020 5:20 PM Dictated: 03/15/201716Transcribed: 03/15/201716 ECG Additional Comments: EKG wtih NSR at 82bpm, no acute ischemic changes Supervising Physician Co-Signing Physician Notes Patient seen and examined, chart reviewed, case discussed with Dr. Figueredo and I agree with her assessment and plan as documented above. Briefly, patient is a 70yo male with history of HTN, HLP, IFG presenting with transient neurological symptoms - confusion and word finding difficulty. Symptoms have resolved. Complaining only of dull AMBROCIO at this time. On exam he is afebrile, hypertensive otherwise stable HEENT - NC/AT, PERRL, EOMI, MMM, Neck supple Heart - +S1/S2, regular, no m/r/g Lungs - CTA Abd - +BS, soft, NT/ND Ext - No edema Neuro - No deficits. AA&O x 4, speech intact, CN intact, MS 5/5 in UE/LE bilaterally, sensation intact to light touch Labs and images reviewed. Significant for Na of 128, prior value of 133 Assessment/Plan: 70yo male with HTN, HLP presenting with transient neurological symptoms, now resolved. CT head as well as CTA head and neck are unremarkable. Suspect TIA -Admit to medical with tele -Check MRI, Echo, AIC and Lipids -Initiate ASA and statin for now -Neurology consultation appreciated -Remainder of plan as above Resident Activity Tracking Resident Involvement: Resident Care Provided Care Provided: Adult Hospital Medicine
[2020-03-15] MEDS ORDERED: LORazepam 1 MG TAB PO PRN (21:36)
[2020-03-15] MEDS ORDERED: ONDANSETRON 4 MG OD TAB PO PRN (21:36)
[2020-03-15] MEDS ORDERED: CHOLECALCIFEROL 1,000 UNITS 25 MCG TAB PO SCH (22:15)
[2020-03-15] MEDS ORDERED: LORazepam 0.25 MG/0.5 ML VIAL IV ONE (22:42)
[2020-03-15] MEDS ORDERED: GADOBUTROL 65ML VIAL IV ONE (23:20)
[2020-03-15] MEDS: SODIUM CHLORIDE 1 GM TABLET PO SCH (23:26)
--- NOTE | 2020-03-16 04:12 | Billing Data ---
Date of Service March 15, 2020 Coding Level of Care Code 34343 Initial Inpt Care Lvl 3
--- NOTE | 2020-03-16 07:52 | Magnetic Resonance Report ---
MR brain wo/w con HISTORY: 70 years-old Male TIA acute strokelike symptoms COMPARISON: CT head, CTA head and neck 03/15/2020 TECHNIQUE: Multiplanar multisequence MRI of the brain was obtained both with and without the use of 8 .7 mL Gadavist FINDINGS: Nurse Case Management localizer images demonstrate no gross extracranial abnormality. There is no restricted diffusio n to suggest acute or subacute infarct. Midline structures including the corpus callosum, brainstem, optic chiasm, pituitary and pineal glands appear unremarkable on the sagittal T1 series. No pathologic blooming artifact on the T2 star series. There is no acute intracranial hemorrhage, mid line shift, abnormal extra-axial collection, hydrocephalus or intracranial mass. Mild age-related inv olutional changes. Mild patchy white matter hypodensities are suggestive of chronic microvascular isc hemic disease. Small linear area of apparent increased FLAIR signal involving the right parietal lobe on image 19 series 6i is noted with normal T2 signal, possibly artifactual. There is no abnormal int ra-axial or extra-axial enhancement. Cerebral venous sinuses and major arterial flow voids at the level the skull base appear patent. Its are unremarkable. Mastoid air cells are clear. The skull and soft tissues are unremarkable. IMPRESSION: 1. No acute intracranial abnormality, specifically there is no evidence of acute or subacute infarct. 2. Findings suggestive of mild chronic microvascular ischemic disease. 3. No abnormal enhancement. ACT 112: Negative or not required by law. The above report was generated using voice recognition software. It may contain grammatical, syntax o r spelling errors. Electronically signed by: Brad Flynn M.D. 03/16/2020 7:50 AM
[2020-03-16 07:53] LABS: Basophils # (auto) 0.01 K/uL (0-0.2); Basophils % (auto) 0.2 %; Eosinophils # (auto) 0.13 K/uL (0-0.5); Eosinophils % (auto) 2.8 %; Hematocrit (blood only) 39.1 % (42-52); Immature Granulocytes # (auto) 0.02 K/uL (0.00-0.02); Immature Granulocytes % (auto) 0.4 %; Lymphocytes # (auto) 1.31 K/uL (1.2-3.4); Lymphocytes % (auto) 28.6 %; Mean Corpuscular Hemoglobin 30.6 pg (25-34); Mean Corpuscular Hgb Conc 35.8 g/dL (32-36); Mean Corpuscular Volume 85.4 fL (80-100); Mean Platelet Volume 8.9 fL (7.4-10.4); Monocytes # (auto) 0.66 K/uL (0.11-0.59); Monocytes % (auto) 14.4 %; Neutrophils # (auto) 2.45 K/uL (1.4-6.5); Neutrophils % (auto) 53.6 %; Platelet Count 272 K/uL (130-400); RDW Coefficient of Variation 13.4 % (11.5-14.5); RDW Standard Deviation 41.8 fL (36.4-46.3); Red Blood Count 4.58 M/uL (4.7-6.1); White Blood Count 4.58 K/uL (4.8-10.8)
[2020-03-16] MEDS: SODIUM CHLORIDE 1 GM TABLET PO SCH (07:57)
[2020-03-16 08:43] LABS: BUN Creatinine Ratio 18.4 (10-20); Calcium 9.1 mg/dl (8.5-10.1); Creatinine Clr Calc Pharmacy 90.1 ml/min; Est GFR (African American) 102.8; Est GFR (Non-African American) 88.7
[2020-03-16] MEDS ORDERED: ASPIRIN 81 MG ECTAB PO SCH (09:00)
[2020-03-16] MEDS ORDERED: FUROSEMIDE 20 MG TAB PO SCH (09:00)
[2020-03-16] MEDS ORDERED: PANTOprazole 40 MG TAB PO SCH (09:00)
[2020-03-16] MEDS ORDERED: CLOPIDOGREL BISULFATE 75 MG TAB PO SCH (09:00)
[2020-03-16] MEDS ORDERED: ATORVASTATIN 40 MG TAB PO SCH (09:00)
[2020-03-16] MEDS ORDERED: CEROVITE ADV FORMULA TAB PO SCH (09:00)
[2020-03-16 09:04] LABS: Estimated Average Glucose 108 mg/dl; Hemoglobin A1C 5.4 % (4.5-5.6)
--- NOTE | 2020-03-16 10:01 | Neurology Consultation ---
Date of Consultation March 16, 2020 Assessment & Plan (1) TIA (transient ischemic attack): (2) Expressive aphasia: (3) Hypertension: this patient had a brief episode of expressive type aphasia (with possible mild receptive component) lasting about 30 minutes March 15. All his symptoms have resolved and he is back to baseline today. I think this is consistent with a transient ischemic attack and his blood pressure was markedly elevated in the emergency room. Today his blood pressure is doing very well. The rest of his laboratory studies are unremarkable although his sodium is low (mildly today at 131). 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 CT angiography of the head neck were unremarkable an MRI of the brain showed no stroke. There is only a few old nonspecific white matter changes. Recommendations: 1. Agree with 81 milligram aspirin tablet daily. 2. Control blood pressure as you are doing, aiming for a mean arterial pressure of approximately 95-100. 3. patient is not a high dose statin candidate and his lipid parameters are normal. 4. awaiting echocardiogram. I reviewed the MRI films and discussed the case with the patient at bedside, RN at bedside, and Dr. East including differential diagnosis and treatment options. History of Present Illness Reason for Consultation: patient is a 70-year-old, who I have been asked to see at the request of Dr. Glover, for neurologic consultation regarding TIA Requesting Physician: Dr. Glover Attending Physician: Dorcas Glover, DO History of Present Illness patient has a history of dyslipidemia, gastroesophageal reflux disease, mild anemia, hypertension, osteoarthritis with lumbar spondylosis, and SIADH followed by Dr. Bethea. Patient was driving home on the afternoon of March 15 when he had the sudden onset of bifrontal numbness and dizzy feeling of a lightheaded nature. There was no vertigo. He pulled the car over got out and found out that he was not getting words out correctly and was a little confused with finding the right word. He did not have any vision problems, head pain, or pain, weakness, or numbness in the limbs. His balance was reasonable. He felt the worst that lasted 15-20 minutes and then he started improving. He got home but was still having word issues with coming up with the right word. His noticed this and EMS was called. By the time EMS came he was almost back to normal. He arrived at the emergency room at 1717, with a temperature of 36.7, pulse 79, blood pressure 103/102, and O2 sat 97 percent. He still complained of a little bit of frontal headache of a mild nature but his speech was back to normal and his neurologic examination was normal. CBC showed mild anemia and sodium was 128. CT scan of the head, CT angiography of the head, and CT angiography of the neck were all unremarkable without any acute abnormalities or vascular anomalies. MRI of the brain showed a few scattered old small vessel ischemic changes but no acute changes. Laboratory studies this morning showed hemoglobin A1c of 5.4, triglyceride 79, cholesterol 175, and sodium 131. He did not have anemia on CBC. Blood pressure was better this morning at 145/74. Patient feels back to baseline and has no complaints or issues now. Allergies Allergy/AdvReac Type Severity Reaction Status Date / Time cephalexin Allergy Intermediate dyspnea Verified 03/15/20 18:31 prednisone Allergy Intermediate dyspnea Verified 03/15/20 18:31 clindamycin AdvReac Severe c. diff Verified 03/15/20 18:31 azelastine [From Astelin] AdvReac Intermediate severe Verified 03/15/20 18:31 congestion Home Medications Medication Instructions Recorded Confirmed Type cholecalciferol (vitamin D3) 1,000 unit PO QPM 05/22/18 03/15/20 History pantoprazole 40 mg PO QAM 05/22/18 03/15/20 History sodium chloride 1 g PO BID 05/22/18 03/15/20 History Centrum 1 tab PO QAM 09/20/19 03/15/20 History furosemide 20 mg tablet 20 mg PO QAM #90 tab 10/01/19 03/15/20 Rx Patient History Medical History Anemia per records Celis esophagus Dyslipidemia Per records Emphysema lung per 12/[address] GERD (gastroesophageal reflux disease) controlled Hearing deficit Hiatal hernia Hypertension Per records Hyponatremia Impaired fasting glucose Per records Lumbar spondylosis Osteoarthritis SIADH (syndrome of inappropriate ADH production) Sodium 133 on 02/03/20 labs, managed with daily sodium chloride/lasix, [place] [facility] [place]. [place]) Surgical History History of colonoscopy History of esophagogastroduodenoscopy (EGD) EGD: 12/13/19: MAC sedation at [facility] History of meniscectomy of left knee History of sinus surgery History of surgical removal of ganglion cyst right wrist History of tooth extraction History of total knee replacement Right TKA: 09/16/18: SAB x 1 attempt at L3/L4 + PNB at [facility] Hx of appendectomy Hx of cholecystectomy Hx of shoulder surgery R/L Hx of tonsillectomy Family History Mother FHx: colon cancer Colorectal cancer Father FHx: lung cancer Lung cancer Grandmother (Maternal) FHx: lung cancer Lung cancer Brother FHx: cancer Grandfather (Maternal) FHx: cancer Denies family history of Ovarian cancer Prostate cancer Myocardial infarction Breast cancer Social History Smoking Status: Former smoker Age Started Using Tobacco: 14; Number of Years Since Quit: 35; Second Hand Exposure: Yes (IN CHILDHOOD); Hx Alcohol Use: Yes Alcohol type: beer Alcohol Intake Frequency Comment: 1-2 beers per day. 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 Other Information That Helps Us Care for You: No Feels Safe at Home: Yes Safety Concerns: Feels Safe At This Time Childhood Exposure to Second-Hand Smoke: Yes Dental Care, Regularly: Yes Physical Activity Frequency: 3-4 Times per Week Assistive Devices: None Review of Systems Constitutional: no fever, no fatigue and no weakness Eyes: no diplopia, no eye pain and no worsening vision Ear, Nose, Mouth, Throat: no ear pain, no tinnitus, no hearing loss, no dizziness, no hoarseness and no dysphagia Respiratory: no cough and no dyspnea Cardiovascular: no chest pain, no palpitations and no lightheadedness Gastrointestinal: no abdominal pain, no nausea and no vomiting Genitourinary: no dysuria and no urinary incontinence Musculoskeletal: + back pain; no neck pain, no radicular pain, no joint pain and no myalgia Integumentary: no rash and no lesions Neurologic: no gait abnormality, no localized weakness, no generalized weakness, no tingling, no numbness, no tremor(s), no abnormal movements, no headache(s), no abnormal speech, no confusion and no memory loss Psychiatric: no depression, no irritability, no anxiety, no difficulty concentrating, no confusion and no hallucinations Endocrine: no fatigue and no flushing Hematologic / Lymphatic: no easy bleeding and no easy bruising Allergy / Immunological: no urticaria and no problem reported Exam (Neuro) Physical Exam: The patient is right-handed. The patient is awake, alert, and attentive. Speech is normal without any aphasia or dysarthria. he can name objects, repeat phrases, and has normal spontaneous speech. Mentation and thought processes are intact, with orientation to person, place and time, and normal fund of knowledge. Attention and concentration are normal. Mood and affect are normal and appropriate. General appearance and grooming are normal. Short and long-term memory are intact. Overall, his NIH stroke scale equals 0 The discs are sharp with positive venous pulsations bilaterally. There are no exudates, hemorrhages, or blood vessel changes seen. Pupils are 4 mm bilaterally and reactive to light. Extraocular eye muscles are intact without nystagmus. Visual acuity and visual jackson seem normal grossly to confrontation. There are no deficits to sensation in the face in all 3 distributions of the fi fth cranial nerve bilaterally. Corneal reflexes are positive bilaterally. Facial strength and symmetry was normal bilaterally. Hearing seems normal to whisper and finger rub bilaterally. Palate moves well without asymmetry. There is normal sternocleidomastoid and trapezius (shoulder shrug) strength bilaterally. Tongue is midline with good strength bilaterally. Neck has a full range of motion without discomfort. There are no cervical bruits bilaterally. There are no cranial or ocular bruits. Heart is without murmur. There is a regular rhythm and rate. Cervical, thoracic, and lumbar spine are nontender to palpation. Gait is narrow based, with good arm swing, turns, and stance. Balance is normal eyes open or closed. The patient can tandem walk without difficulty. The patient can heal and toe walk normally. With outstretched arms there is no drift. There are no resting, postural, or action tremors. There is no ataxia with finger to nose testing. There is good facility in the hands. No other abnormal involuntary movements are noted. Motor strength is 5/5 diffusely in the arms bilaterally including deltoids, biceps, triceps, brachioradialis, wrist flexors and extensors, health science specialist, and intrinsic hand muscles. Motor strength is 5/5 diffusely in the legs bilaterally including hip flexors, quadriceps, hamstrings, gastrocnemius, tibialis anterior, tibialis posterior, and Peroneii muscles. Toe extensors are normal and there is good bulk in the extensor digitorum brevis muscles bilaterally. The limbs have good tone without rigidity or spasticity. There is no atrophy noted in the muscles. Muscle bulk is normal, there is no tenderness to palpation, no myotonia to percussion, and no fasciculations seen. Sensory examination is intact to touch and pin throughout all 4 limbs diffusely. Vibratory and position sense testing is normal bilaterally as well. There is normal sensation to temperature. Reflexes are 1/4 in the biceps, triceps, brachioradialis, quadriceps, and Achilles tendons bilaterally. There is no clonus bilaterally. Toes are downgoing with plantar stimulation bilaterally. Peripheral pulses are present and of normal quality distally in all 4 limbs. There is no peripheral edema noted in the limbs. Results & Data ([facility]) Vital Signs (Past 12 Hours) Vital Signs Temp Pulse Pulse Pulse Resp BP Pulse Ox 03/16/20 08:00 36.4 C L 68 16 145/74 H 95 03/16/20 03:00 36.3 C L 72 20 157/85 H 98 03/16/20 00:57 87 03/15/20 23:35 36.6 C 73 20 177/98 H 96 03/15/20 23:00 36.4 C L 84 18 155/74 H 95 PG Care Time/CCT Total # of Minutes Spent Total Time Spent with Patient: Total time spent is greater than 50% in coordination of care (as documented) at patient's floor/unit and/or counseling patient: Coding Level of Care Code 02370 Initial Inpt Care Lvl 3 Diagnoses TIA (transient ischemic attack) G45.9 Expressive aphasia R47.01 Hypertension I10
--- NOTE | 2020-03-16 12:23 | Discharge Summary ---
Date of Service March 16, 2020 Admission HPI Per Admitting Provider Fred Isbell is a 70 yo male with a PMHx of Celis esophagus, chronic sinusitis, HTN, dyslipidemia, and SIADH who presented to the ED on 03/15/20 after an episode of expressive aphasia. Patient states that at approximately 3:45 pm, he [place] he stopped at his mailbox and began to experience a left sided headache, confusion, processing difficulties, and trouble talking. Patient states that he was lightheaded and "couldn't think straight." Patient reports being aware that he was saying the wrong words for what he wanted to say. He did not have any focal weakness or difficulty with ambulation. Patient was able to get back into the car, take off the emergency break, drive the vehicle back up to the house/garage, walk up ~18 steps from the deck to the house, and upstairs to where his was working. He continued to have difficulty talking when trying to communicate with the regarding this episode. Patient's called EMS. Patient states that his sympt oms lasted for ~15-20 minutes and upon EMS arrival, his symptoms were improving. He arrived to the ED on a stroke alert. Patient states that his symptoms have significantly improved and the speech d ifficulty has fully resolved. He does report a persistent bilateral temporal headache, rated at a 2/10, and described as "a slight pain." He also reports some intermittent lightheadedness and mild nausea s/p administration of IV contrast for the head CT. Patient reports that he otherwise "feels completely back to normal" and he is hungry; last meal was lunch around 12pm and consisted of eggs, Martiniquais muffin, and tea. Patient denies a hx of similar episodes. He notes the only change in recent medication regimen was a 6-day steroid taper that he took for L groin strain (completed this taper 2 days ago). It is noted that patient stopped smoking ~15 years ago after a [id number] hx. He does drink alcohol regularly and drinks ~2 beer per day; denies hx of withdrawal. Principal Diagnosis TIA Discharge Exam Constitutional WD/WN, vitals as above Eyes PERRL, conjunctivae normal, anicteric sclerae ENMT external ear and nose normal, oropharynx normal Respiratory normal respiratory effort, lungs clear to auscultation Cardiovascular RRR, no murmur, no edema Gastrointestinal (Abdomen) normal bowel sounds, soft, nontender, no hepatosplenomegaly Skin no rashes, warm and dry Neurologic CN's II-XI intact bilaterally; no focal motor deficits Psychiatric A+Ox3, euthymic affect Discharge Data Allergies Allergy/AdvReac Type Severity Reaction Status Date / Time cephalexin Allergy Intermediate dyspnea Verified 03/15/20 18:31 prednisone Allergy Intermediate dyspnea Verified 03/15/20 18:31 clindamycin AdvReac Severe c. diff Verified 03/15/20 18:31 azelastine [From Astelin] AdvReac Intermediate severe Verified 03/15/20 18:31 congestion Consultations 03/15/20 17:52 ED Decision to Admit Stat 03/15/20 21:36 Consult Neurology Routine Ordered Studies 03/15/20 16:51 CT angio head w con Stat CT angio neck with con Stat CT head/brain wo con Stat 03/15/20 21:36 MR brain wo/w con Routine Hospital Course (1) TIA (transient ischemic attack): Fred Isbell is a 70 yo male with a PMHx of Celis esophagus, chronic sinusitis, HTN, dyslipidemia, and SIADH who presented to the ED on 03/15/20 after an episode of expressive aphasia and is admitted for TIA/stroke evaluation. TIA - Patient's speech symptoms resolved w/ episode lasting ~20 minutes - Head CT 03/15/20: No acute intracranial findings - Head CTA 03/15/20: No significant abnormalities. - Neck CTA 03/15/20: No evidence of hemodynamically significant carotid or vertebral artery stenosis. No evidence of dissection. - TTE ordered --unremarkable - Brain MRI w/wo contrast: No acute intracranial abnormality, specifically there is no evidence of acute or subacute infarct. Findings suggestive of mild chronic microvascular ischemic disease. - HgbA1c 5.4. Lipid profile unremarkable-- patient is not a high dose statin candidate - Patient started on ASA 81mg po daily and will continue on discharge HTN maximize blood pressure control, aiming for a mean arterial pressure of approximately 95-100 per neurology Hx of alcohol use - Patient reports daily alcohol use of ~2 beer per day - Ativan 1mg po prn ordered for AWSS of 6-10 x1 SIADH - Hyponatremia at baseline treated with sodium chloride 1g po BID and furosemide 20mg po qAM -Sodium 131 on discharge Hypertension: -Optimize aiming for a mean arterial pressure of approximately 95-100 Barretts esophagus - Continue home protonix 40mg po daily Vitamin D Deficiency - Continue home Vitamin D3 1,000 units po daily DVT Ppx: SCDs. At time of discharge patient with no other acute concerns or complaints. Total Time Total Time Spent Total Time Spent (In Minutes): 30 Discharge Plan Discharge Items Patient Disposition: Home - Self-Care Reason For Visit: TIA Activity: Per Instructions section Non-emergency contact: Primary Care Provider Call non-emergency contact if: you have any medication questions and your symptoms worsen Follow-up/Referrals: George Slaughter III, MD [Primary Care Provider] - Diet: Heart Healthy Addtl Attending Provider Instructions: You were admitted with concerns for a transient ischemic attack, also known as a TIA. This may have explain your episode of expressive aphasia where you are unable to speak as normal. It is hard to say what brought up on this. However all your brain imaging did not show any significant abnormalities. Neurology was consulted during your admission. Please follow the below instructions on discharge: We will start you on a baby aspirin 81 mg to take daily. You may get this [id number], however a prescription has been sent to your [facility] pharmacy. It is important to optimize your blood pressure. Please continue to take home blood pressure readings as you have been doing and keep a log of what your numbers are. If they are consistently high then please follow-up with your PCP Your cholesterol panel was largely normal, you do not need to start a medication for this If you notice symptoms similar to what brought you into the ER in the first place, please return for further evaluation to the ER again Please follow-up with your PCP within 1 week of discharge Pending Studies at Discharge: No Stand-Alone Forms: My Inogen, Smoking Cessation Medications and DC Order Prescriptions: New aspirin 81 mg tablet,chewable 81 mg PO DAILY Qty: 30 RF: 0 Continued furosemide 20 mg tablet 20 mg PO QAM Qty: 90 RF: 3 sodium chloride 1 gram Tablet 1 g PO BID RF: 0 pantoprazole 40 mg tablet,delayed release (DR/EC) 40 mg PO QAM RF: 0 cholecalciferol (vitamin D3) 1,000 unit Tablet 1,000 unit PO QPM RF: 0 Centrum 18-400 mg-mcg Tablet 1 tab PO QAM RF: 0 Discharge Orders: Discharge Order (Routine); Ordered 03/16/20 Ordered By: Shantanu Castellanos Admission Data Admit Date/Time: 03/15/20 20:30 Attending Provider: Dorcas Glover Admit Provider: Katherine Figueredo Primary Care Provider: George Slaughter III Other Providers: Dorcas Glover ; Figueroa Lee Resident Activity Tracking Resident Involvement: Resident Care Provided Care Provided: Adult [facility]
--- NOTE | 2020-03-16 16:55 | XCELERA ---
[id number]
--- NOTE | 2020-03-17 15:00 | Electrocardiogram Report ---
Test Reason : Blood Pressure : / mmHG Vent. Rate : 082 BPM Atrial Rate : 082 BPM P-R Int : 174 ms QRS Dur : 088 ms QT Int : 376 ms P-R-T Axes : 076 025 055 degrees QTc Int : 439 ms Normal sinus rhythm Normal ECG When compared with ECG of 22-MAY-2018 08:50, No significant change was found Confirmed by Wong Alcocer ([id number]) on 03/17/2020 3:00:13 PM Referred By: REFERRED SELF Confirmed By:Wong Alcocer
== END 2020-03-16 13:25 | disposition home or self-care (01) | DRG 69 ==
LOC: ED 17:02 → 2N 20:30 → UNDODISIN 03-16 14:51

== ENCOUNTER 2020-04-18 08:00 | Observation (INO) ==
--- NOTE | 2020-04-05 13:41 | Anesthesiology Consultation ---
Date of Service April 05, 2020 Assessment & Plan (1) Encounter for pre-operative examination: - Per assessment on 04/05: Travel screen negative. No known COVID-19 positive contacts or current COVID-19 related symptoms. Surgeon arranging preop COVID maryam ting (scheduled 04/11; [facility]). Awaiting results. - PCP office visit note: 03/21/20: "Reviewed hospitalization with patient. He has had no further neurological symptoms. Clinically stable. Will add famotidine 20mg qhs and continue on pantoprazole. No other changes today. Blood pressure is acceptable" - ASA instructions per surgeon/prescriber Chart Review Chart Review: Acceptable Risk for Surgery and Patient seen in Pre Admission Testing (02/03/20) History Surgery Operation Date: 04/18/20 09:15 Proposed Procedures p Right Knee Revision, Tibial Revision - Epi Sorto DO Height/Weight Height: 5 ft 9 in Weight: 86.183 kg Allergies Allergy/AdvReac Type Severity Reaction Status Date / Time cephalexin Allergy Intermediate dyspnea Verified 04/05/20 12:15 prednisone Allergy Intermediate dyspnea Verified 04/05/20 12:15 clindamycin AdvReac Severe c. diff Verified 04/05/20 12:15 azelastine [From Astelin] AdvReac Intermediate severe Verified 04/05/20 12:15 congestion Medications Home Medications Medication Instructions Recorded Confirmed Last Taken cholecalciferol (vitamin D3) 1,000 unit PO QPM 05/22/18 04/05/20 12/15/19 08:00 pantoprazole 40 mg PO QAM 05/22/18 04/05/20 12/15/19 08:00 sodium chloride 1 g PO BID 05/22/18 04/05/20 12/15/19 21:00 Centrum 1 tab PO QAM 09/20/19 04/05/20 12/15/19 08:00 furosemide 20 mg tablet 20 mg PO QAM #90 tab 10/01/19 04/05/20 12/15/19 08:00 aspirin 81 mg PO QAM 04/05/20 04/05/20 Unknown famotidine 20 mg PO HS 04/05/20 04/05/20 Unknown Past Medical History Medical History Anemia Celis esophagus Dyslipidemia Per records Emphysema lung per 12/[address] GERD (gastroesophageal reflux disease) controlled Hearing deficit Hiatal hernia History of TIA (transient ischemic attack) 03/15/20 ([facility]) > in setting of markedly elevated BP (unremarkable head/carotid imaging/echo) > ASA added, PCP monitoring BP since discharge Hypertension Per records Hyponatremia Impaired fasting glucose Per records Lumbar spondylosis Osteoarthritis SIADH (syndrome of inappropriate ADH production) Sodium 134 on 04/04/20 labs, managed with daily sodium chloride/lasix, follows with [facility] [place] (Dr. Bethea) Past Family History Family History Mother FHx: colon cancer Colorectal cancer Father FHx: lung cancer Lung cancer Grandmother (Maternal) FHx: lung cancer Lung cancer Brother FHx: cancer Grandfather (Maternal) FHx: cancer Denies family history of Ovarian cancer Prostate cancer Myocardial infarction Breast cancer Past Surgical History Surgical History History of colonoscopy History of esophagogastroduodenoscopy (EGD) EGD: 12/13/19: MAC sedation at [facility] History of meniscectomy of left knee History of sinus surgery History of surgical removal of ganglion cyst right wrist History of tooth extraction History of total knee replacement Right TKA: 09/16/18: SAB x 1 attempt at L3/L4 + PNB at [facility] History of transesophageal echocardiography (BEST) Hx of appendectomy Hx of cholecystectomy Hx of shoulder surgery R/L Hx of tonsillectomy Social History Smoking Status: Former smoker tobacco type: cigarettes Do You Dip or Chew Tobacco: No Smoking End Date: 1984 Hx Alcohol Use: Yes Alcohol type: beer alcohol intake frequency: 3 or more drinks per day Hx Substance Use: No substance use type: does not use Testing Laboratory Results 04/04/20 WBC 3.49 H/H 13.8/38.9 PLATELETS 269 SODIUM 134 POTASSIUM 3.9 CHLORIDE 100 CO2 28 BUN 15 CREATININE 0.94 GLUCOSE 102 PT 9.6 PTT 25.7 INR 0.9 HGBA1C 5.5% T&S B+Ab- Electrocardiogram Date: 03/15/20 Findings: + NSR @ (82) Chest X-Ray Date: 03/15/20 FINDINGS: The heart is the upper limits of normal in size. There is no failure. There is no focal pulmonary consolidation. There are no pleural effusions. There is a prominent left cardiophrenic angle fat pad. IMPRESSION: No active disease in the chest. Echocardiogram Date: 03/16/20 EF 50 to 55%. No regional wall motion abnormality. Grade 1 DD. Mild LAD. Mild AR. No significant valvular disease. Stress Test Date: 08/05/12 Resting EF: 60% Normal echocardiographic response to stress, thus excluding significant myocardial ischemia. Other Testing Brain MRI: 03/15/20: No acute intracranial abnormality, specifically there is no evidence of acute or subacute infarct. Findings suggestive of mild chronic microvascular ischemic disease. No abnormal enhancement. Neck CTA: 03/15/20: No evidence of hemodynamically significant carotid or vertebral artery stenosis. No evidence of dissection. Head CTA: 03/15/20: There are no lesion suspicious for aneurysm. There are no major intracranial branch occlusions. The dural venous sinuses appear patent. The basilar artery is somewhat diminutive. There are origins of the posterior cerebral arteries. Head CT: 03/15/20: No intra or extra-axial mass lesions are visualized. There is no CT evidence of acute cortical infarction. There is no evidence of midline shift. There is no acute hemorrhage. No calvarial fractures are visualized. There are minor white matter hypodensities likely on a small vessel basis. There is no evidence of pathologic ventricular dilatation. There is no evidence of acute sinusitis. IMPRESSION: No acute intracranial findings CT Lun12/09/19: Mild pulmonary emphysema. Stable typically benign 3.8 mm right lower lobe perifissural nodule. No new or enlarging pulmonary nodules identified. Continue annual lung cancer screening.
--- NOTE | 2020-04-14 08:29 | History & Physical Report ---
Date of Service April 14, 2020 date of surgery: 04/18/20 Procedure: Right total knee revision Assessment & Plan (1) Aseptic loosening of prosthetic knee: presents with persistent right knee effusion, had right TKA in November 2018, he did have a fall in approximately January of that year. He is currently using topical Diclofenac without much improvement. he has had several knee aspirations which are negative for infectious ideology, bone scan reveals loosening of the tibial component. options discussed and will proceed with right total knee revision at [facility], will obtain intra-operative cultures The risks and benefits have been discussed including, but not limited to, risk of infection, nerve injury, stiffness, loss of motion, failure to improve, etc. Reasonable outcomes and options of treatment were discussed. An explanation of appropriate alternatives to the procedure that may be advantageous were discussed and their risks and benefits, as well as the risks and benefits of not proceeding with treatment. I offered to answer any additional inquiries concerning the treatment involved. All the patient's questions were answered. The patient is agreeable, understanding of the treatment plan and alternatives, and wishes to proceed with the treatment plan. History of Present Illness Chief Complaint: Right knee pain Primary Care Provider: George Slaughter MD Mr Isbell is a 70 year old male who is here for a follow up of right knee pain, presents for pre-op prior to a right total knee revision at [facility]. He presents with pain and swelling on the right side. On 11/17/18 Dr. Sorto performed right knee TKA. over the course of the past 6 months has developed intermittent swelling and has had a few aspirations which show no acute findings or infectious ideology. he then underwent bone scan which showed loosening of the tibial component. He states that the symptoms have been chronic non-traumatic. Currently the patient states that the symptoms are mild-moderate. The pain is described as aching and throbbing. He rates his current pain as 3/10. worst pain is 7/10. Allergies Allergy/AdvReac Type Severity Reaction Status Date / Time cephalexin Allergy Intermediate dyspnea Verified 04/10/20 08:45 prednisone Allergy Intermediate dyspnea Verified 04/10/20 08:45 clindamycin AdvReac Severe c. diff Verified 04/10/20 08:45 azelastine [From Astelin] AdvReac Intermediate severe Verified 04/10/20 08:45 congestion Home Medications Medication Instructions Recorded Confirmed Type cholecalciferol (vitamin D3) 1,000 unit PO QPM 05/22/18 04/10/20 History pantoprazole 40 mg PO QAM 05/22/18 04/10/20 History sodium chloride 1 g PO BID 05/22/18 04/10/20 History Centrum 1 tab PO QAM 09/20/19 04/10/20 History furosemide 20 mg tablet 20 mg PO QAM #90 tab 10/01/19 04/10/20 Rx aspirin 81 mg PO QAM 04/05/20 04/10/20 History famotidine 20 mg PO HS 04/05/20 04/10/20 History Past Med/Surg History Medical History Anemia Celis esophagus Dyslipidemia Per records Emphysema lung per 12/[address] GERD (gastroesophageal reflux disease) controlled Hearing deficit Hiatal hernia History of TIA (transient ischemic attack) 03/15/20 ([facility]) > in setting of markedly elevated BP (unremarkable head/carotid imaging/echo) > ASA added, PCP monitoring BP since discharge Hypertension Per records Hyponatremia Impaired fasting glucose Per records Lumbar spondylosis Osteoarthritis SIADH (syndrome of inappropriate ADH production) Sodium 134 on 04/04/20 labs, managed with daily sodium chloride/lasix, follows with [facility] neph[place] (Dr. Bethea) Surgical History History of colonoscopy History of esophagogastroduodenoscopy (EGD) EGD: 12/13/19: MAC sedation at [facility] History of meniscectomy of left knee History of sinus surgery History of surgical removal of ganglion cyst right wrist History of tooth extraction History of total knee replacement Right TKA: 09/16/18: SAB x 1 attempt at L3/L4 + PNB at [facility] History of transesophageal echocardiography (BEST) Hx of appendectomy Hx of cholecystectomy Hx of shoulder surgery R/L Hx of tonsillectomy Family History Mother FHx: colon cancer Colorectal cancer Father FHx: lung cancer Lung cancer Grandmother (Maternal) FHx: lung cancer Lung cancer Brother FHx: cancer Grandfather (Maternal) FHx: cancer Denies family history of Ovarian cancer Prostate cancer Myocardial infarction Breast cancer Social History Smoking Status: Former smoker Age Started Using Tobacco: 14; Number of Years Since Quit: 35; Second Hand Exposure: Yes (IN CHILDHOOD); Hx Alcohol Use: Yes Alcohol type: beer Alcohol Intake Frequency Comment: 1-2 beers per day. 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 Feels Safe at Home: Yes Childhood Exposure to Second-Hand Smoke: Yes Dental Care, Regularly: Yes Physical Activity Frequency: 3-4 Times per Week Review of Systems Review of Systems: All systems reviewed & are unremarkable except as noted in HPI & below Constitutional: no fever, no chills and no sweats Respiratory: no cough and no dyspnea Cardiovascular: no chest pain, no dyspnea and no orthopnea Gastrointestinal: no abdominal pain, no nausea and no vomiting Musculoskeletal: as per Subjective / HPI Physical Exam Physical Exam: Ht: 5ft 9in Wt: 86kg Constitutional: WD/WN, vitals as above no acute distress Respiratory: normal respiratory effort, lungs clear to auscultation no respiratory distress, no labored breathing and does not use accessory muscles Cardiovascular: RRR, no murmur, no edema Gastrointestinal (Abdomen): normal bowel sounds, soft, nontender, no hepatosplenomegaly Musculoskeletal: Knee: + knee abnormal to inspection (Right Knee), + effusion (+1 effusion), + surgical incision (well healed midline incision), + limited ROM of knee (ROM 0/0/115) and + joint line tenderness (medial joint line); no deformity, no skin erythema, no ecchymosis, no crepitation with knee ROM, no valgus laxity, no varus laxity and anterior drawer test negative Results & Data Results & Data ([facility]) Laboratory Results Source: Knee,Right OV Order: Ordered: Aer/Jolene Cult/Sm Procedure Result Verified Site Gram Stain Final 09/20/19-1140 Gram Stain Result Rare WBCs Seen No Organisms Seen Aero/Jolene Cult Final 09/25/19-1028 No growth Diagnostic Findings 01/14/2020 X-RAY Knee 3 Views RT possible loosening tibial component BONE SCAN showing increased uptake along tibial component consistent with tibial loosening
[~2020-04-18 08:00] MED LIST changes: +ACETAMINOPHEN 500 MG TAB PO SCH; +ANCEF - ALLERGY NOTED TO ORDERED MEDICATION SCH; +BUPIVACAINE 0.5 % 5 MG/1 ML PF 10ML VIAL ONE; -CHOL2000 PO; +CeleBREX 200 MG CAP PO SCH; +EPINEPHrine INJ 1 MG/ML AMP ONE; +FAMOTIDINE 20 MG TAB PO SCH; -FURO-85 PO; +GABAPENTIN 300 MG CAP PO SCH; +LR 500ML BOLUS, THEN 15ML/HR IV SCH; +METOCLOPRAMIDE HCL 10 MG TABLET PO SCH; -MULT-506 PO; -PANT40TA PO; +ROPIVACAINE 0.5% 5 MG/ML 30 ML VIAL ONE; +ROPIVACAINE 0.5% HCL/PF 150 MG, BUPIVACAINE 0.75% MPF 20 ML, EPINEPHrine 0.15 MG, Ketor... INFIL SCH; -SODIUM CHLORIDE PO; +VANCOMYCIN HCL 1,000 MG/270 ML BAG IV SCH; +[UNRECOGNIZED DRUG - REMARK] SCH; +oxyCODONE HCL 10 MG TABCR (OxyCONTIN) PO SCH
[2020-04-18] MEDS ORDERED: VANCOMYCIN CONSULT ACTIVE PRN ×2 (08:35→13:41)
--- NOTE | 2020-04-18 08:38 | History & Physical Bridge Note ---
Date of Service April 18, 2020 History & Physical Bridge Note I have examined the patient, reviewed the History & Physical and in the interval since the performance of the History & Physical I have noted the following changes of clinical significance: no changes noted
[2020-04-18] MEDS ORDERED: Nursing to Pharmacy Communication SCH (08:45)
[2020-04-18] MEDS ORDERED: MIDAZOLAM HCL 1 MG/ML 2ML VIAL ONE ×2 (09:09→10:15)
[2020-04-18] MEDS ORDERED: fentaNYL citrate 100 MCG/2 ML VIAL IV PRN (09:15)
[2020-04-18] MEDS ORDERED: ePHEDrine sulfate 50 MG/ML AMP IV PRN (09:15)
[2020-04-18] MEDS ORDERED: LABETALOL HCL IV 5 MG/ML 20ML IV PRN (09:15)
[2020-04-18] MEDS ORDERED: MEPERIDINE HCL 25 MG/ML CARP/VIAL IV PRN (09:15)
[2020-04-18] MEDS ORDERED: PHENYLEPHRINE 100MCG/ML 5ML SYR IV PRN (09:15)
[2020-04-18] MEDS ORDERED: ONDANSETRON INJ 2 MG/ML 2 ML VIAL IV PRN ×2 (09:15→13:41)
[2020-04-18] MEDS ORDERED: ATROPINE SULFATE 0.1 MG/ML 10ML SYR IV PRN (09:15)
[2020-04-18] MEDS ORDERED: HYDROmorphone INJ 1 MG/ML SYRINGE IV PRN (09:15)
[2020-04-18] MEDS ORDERED: BACITRACIN INJ 50,000 UNIT VIAL ONE (09:32)
[2020-04-18] MEDS ORDERED: PROPOFOL IV EMULSION 10 MG/ML 20 ML VIAL IV ONE ×2 (10:16→11:50)
--- NOTE | 2020-04-18 11:59 | Operative Report ---
Post Operative Report Pre & Post Diagnosis Operation Date: 04/18/20 10:45 Pre-Op Diagnosis: Broken Internal Right Knee Prosthesis Post-Op Diagnosis: Broken Internal Right Knee Prosthesis I identified the patient and participated in the time-out.: Yes Procedure Operation Date: 04/18/20 10:45 Actual Procedures p Right Knee Revision, Tibial Revision(Right) with Legion tibial stem size 614 mm stem by 162 mm offset at 5:00 with an 18 mm high flex polyethylene- Epi Sorto DO Surgeon Epi Sorto DO Grocery Supervisor Hermes KAPOOR Estimated Blood Loss 10 Findings Consistent with Post-Op Diagnosis Patient presents with an aseptic loosening of his right tibia status post right total knee arthroplasty he had preoperative work-up included an aspirate negative Gram stain C-reactive protein sed rate within normal limits intraoperative frozen section revealed no acute inflammation less than 5 white cells per high-power field Specimens Bone implants Drains Medium bore Hemovac Anesthesia Type MAC Spinal Regional Complications none Disposition Accompanied Patient To Recovery: No Disposition: Recovery Room Indications Patient presents with aseptic loosening of tibial component right total knee arthroplasty but no response to conservative management including physical therapy bracing activity modification patient there was no evidence of a loose tibial implant no signs of acute infection were noted point cells per high-power field were less than 5 with no acute inflammation on intraoperative frozen section Description of Procedure Initiation of regional anesthesia the right lower extremity was subsequently prepped and draped in usual sterile fashion for surgery type incision made in the region of the previous extensor incision dissection was carried down to the medial parapatellar retinaculum the medial parapatellar retinaculum was incised the patella was subluxed lateralward medial lateral gutters were removed from all scar tissue and sent synovectomy was performed the proximal tibia was evaluated the distal femur was evaluated the femoral component was noted be well cemented no sign of any loosening was noted the tibia was clearly loose after medial and lateral soft tissue releases and a partial quad snip the patella was able to be subluxed out of the way far enough to gain exposure to the proximal tibia the proximal tibial implant was removed tissue from the interface of the implant and bone was sent for pathology frozen section no sign of any type of infection was noted subsequently the intramedullary guide was placed after reaming to a size 14 gave excellent fill of the canal and stability 160 mm x 14 subsequently the trial was placed taken through full range of motion with 18 mm high flex insert patellar tracking was excellent the implant tracked well with flexion extension mid flexion with no signs of instability the wound was irrigated with copious amounts of sterile saline solution the final implant been put together in the back table subsequently was cemented the polyethylene was placed the knee was reduced the tracking was noted to be excellent the quad was repaired with FiberWire and #1 Vicryl subcu was closed with a 2-0 Vicryl skin was closed with skin clips sterile compressive dressing was placed a medium bore Hemovac in place in the deep wound please note Hermes KAPOOR was necessary prepping draping traction wound closure of fascia subcu and skin was necessary for the case I attest to the content of the Intraoperative Record and any orders documented therein. Any exceptions are noted below.
--- NOTE | 2020-04-18 13:24 | Anesthesiology Progress Note ---
Date of Service April 18, 2020 Anesthesia Post Procedure Vital Signs Vital Signs: Temp Pulse Pulse Resp BP BP Pulse Ox 04/18/20 13:15 36.4 C L 77 10 L 131/76 98 04/18/20 13:05 66 12 127/52 L 99 04/18/20 12:55 60 8 L 127/62 99 04/18/20 12:46 36.2 C L 80 12 118/70 98 04/18/20 08:30 36.7 C 64 18 159/77 H 99 Transfer of Care Handoff Completed per policy Notes Mental Status: alert / awake / arousable Patient Amnestic to Procedure: Yes Nausea / Vomiting: adequately controlled Pain: adequately controlled Airway Patency, RR, SpO2: stable & adequate BP & HR: stable & adequate Hydration State: stable & adequate Neuraxial Anesthesia: was administered and sensory block is resolving Anesthetic Complications: no major complications apparent and Pt Satisfied with anesthetic care
--- NOTE | 2020-04-18 13:30 | XRay Report ---
RIGHT KNEE 2 VIEWS History: Right total knee arthroplasty. Degenerative arthritis. Postop. FINDINGS: The patient is status post a right total knee arthroplasty. The hardware is intact. No frac ture or dislocation. Skin juan jose and surgical drains are in place. IMPRESSION: Right total knee arthroplasty. No evidence for hardware complication. ACT 112: Negative or not required by law. Electronically signed by: Regino Arreola M.D. 04/18/2020 1:29 PM
[2020-04-18] MEDS ORDERED: HYDROmorphone INJ 0.5 MG/0.5 ML SYR IV PRN (13:41)
[2020-04-18] MEDS ORDERED: MAGNESIUM HYDROXIDE SUSP 30 ML UDC PO PRN (13:41)
[2020-04-18] MEDS ORDERED: bisacodyL 10 MG SUPP PR PRN (13:41)
[2020-04-18] MEDS ORDERED: NALOXONE HCL 0.4 MG/1 ML VIAL/CARP IV PRN (13:41)
[2020-04-18] MEDS ORDERED: INFLUENZA VACCINE HIGH DOSE 65+ 0.7 ML SYR IM ONE (14:02)
[2020-04-18] MEDS ORDERED: INFLUENZA ADMINISTRATION CHARGE ONE (14:02)
[2020-04-18] MEDS: SODIUM CHLORIDE 0.9% 1000ML 1,000 ML IV SCH (14:10)
[2020-04-18] MEDS: ACETAMINOPHEN 500 MG TAB PO SCH ×2 (14:25→21:48)
[2020-04-18] MEDS: FERROUS GLUCONATE 324 MG TAB PO SCH (17:31)
[2020-04-18] MEDS: DOCUSATE SODIUM 100 MG CAP PO SCH (20:20)
[2020-04-18] MEDS: SODIUM CHLORIDE 1 GM TABLET PO SCH (20:21)
[2020-04-18] MEDS: ASPIRIN 81 MG ECTAB PO SCH (20:39)
[2020-04-18] MEDS ORDERED: SENNA 8.6 MG TAB PO SCH (21:00)
[2020-04-18] MEDS ORDERED: VANCOMYCIN HCL 1,250 MG in SODIUM CHLORIDE 0.9% 250 ML IV SCH (21:00)
[2020-04-18] MEDS ORDERED: CHOLECALCIFEROL 1,000 UNITS 25 MCG TAB PO SCH (21:00)
[2020-04-18] MEDS ORDERED: FAMOTIDINE 20 MG TAB PO SCH (21:00)
[2020-04-19] MEDS: SODIUM CHLORIDE 0.9% 1000ML 1,000 ML IV SCH (01:14)
[2020-04-19] MEDS: oxyCODONE HCL IR 5 MG TAB (IMMEDIATE RELEASE) PO PRN ×2 (04:03→08:59)
[2020-04-19] MEDS: ACETAMINOPHEN 500 MG TAB PO SCH (05:55)
[2020-04-19 06:44] LABS: Hematocrit (blood only) 32.7 % (42-52); Hemoglobin 11.2 g/dL (14.0-18.0); Mean Corpuscular Hemoglobin 29.6 pg (25-34); Mean Corpuscular Hgb Conc 34.3 g/dL (32-36); Mean Corpuscular Volume 86.5 fL (80-100); Mean Platelet Volume 9.1 fL (7.4-10.4); Platelet Count 223 K/uL (130-400); RDW Coefficient of Variation 13.6 % (11.5-14.5); RDW Standard Deviation 43.5 fL (36.4-46.3); Red Blood Count 3.78 M/uL (4.7-6.1)
[2020-04-19 07:17] LABS: BUN Creatinine Ratio 17.5 (10-20); Calcium 8.1 mg/dl (8.5-10.1); Creatinine Clr Calc Pharmacy 86.2 ml/min; Est GFR (African American) 100.9
--- NOTE | 2020-04-19 08:17 | Orthopedic Progress Note ---
Date of Service April 19, 2020 Assessment & Plan (1) History of revision of total replacement of right knee joint: POD #1 s/p Right TKA revision tibial component pt/ot dvt proph with TALA/SCD/ASA plan for d/c home with home health PT, will recheck after PT today for poss d/c home with HHPT will leave hemovac in place until tomorrow, have HH d/c tomorrow Admission and Anticipated Discharge Date Admission Date: April 18, 2020 Subjective POD #1 s/p Right TKA revision tibial component Review of Systems Constitutional: no fever, no chills and no sweats Respiratory: no cough and no dyspnea Cardiovascular: no chest pain and no dyspnea Gastrointestinal: no abdominal pain, no nausea and no vomiting Physical Exam Physical Exam: Vital Signs Temp 36.6 C 04/19/20 07:33 Pulse 75 04/19/20 07:33 Resp 16 04/19/20 07:33 BP 147/70 H 04/19/20 07:33 Pulse Ox 96 04/19/20 07:33 Intake & Output 04/18/20 04/19/20 04/19/20 18:59 06:59 18:59 Intake Total 1710 / 2943.333 1233.333 / 2943.33 3 Output Total 626 / 1951 1325 / 1951 Balance 1084 / 992.333 -91.667 / 992.333 Weight 89.1 kg Intake: IV 870 / 2103.333 1233.333 / 2103.33 3 Lr 1,000 ml @ 15 mls/hr IV . 600 / 600 Q24H JAMES Rx#:[id number] Nss 1000ML 1,0 00 ml @ 100 mls/ 983.333 / 983.333 hr IV .Q10H SC H Rx#:[id number] Vancomycin HCl 1,250 mg In Nss 250 / 250 250 ml @ 200 m ls/hr IV Q12H JAMES Rx#:[id number] VANCOMYCIN HCL 1,000 mg In 270 270 / 270 ml @ 125 mls/h r IV PREOP JAMES Rx #:[id number] IV Perioperative 600 / 600 Oral 240 / 240 Output: Urine 1000 / 1000 Estimated Blood Loss 10 / 10 Drain Output 616 / 941 325 / 941 Right Knee Hem ovac #1 616 / 941 325 / 941 Other: Weight Measureme nt Method Standing Scale Constitutional: WD/WN, vitals as above no acute distress Musculoskeletal: Right Leg: NVDI, calf SNT, negative andres sign. DP palpable, able to wiggle toes/ankle movement without difficulty. dressing clean dry and intact. Results & Data ([facility]) Vital Signs (Past 12 Hours) Vital Signs Temp Pulse Resp BP Pulse Ox 04/19/20 07:33 36.6 C 75 16 147/70 H 96 04/19/20 03:57 36.6 C 80 18 163/69 H 99 04/18/20 23:00 36.6 C 59 L 18 153/75 H 99 Laboratory Results Laboratory Results WBC 4.90 K/uL (4.8-10.8) 04/19/20 06:25 RBC 3.78 M/uL (4.7-6.1) L 04/19/20 06:25 Hgb 11.2 g/dL (14.0-18.0) L 04/19/20 06:25 Hct 32.7 % (42-52) L 04/19/20 06:25 MCV 86.5 fL (80-100) 04/19/20 06:25 MCH 29.6 pg (25-34) 04/19/20 06:25 MCHC 34.3 g/dL (32-36) 04/19/20 06:25 RDW Std Deviation 43.5 fL (36.4-46.3) 04/19/20 06:25 RDW Coeff of Tripp 13.6 % (11.5-14.5) 04/19/20 06:25 Plt Count 223 K/uL (130-400) 04/19/20 06:25 MPV 9.1 fL (7.4-10.4) 04/19/20 06:25 Sodium 138 mmol/L (136-145) 04/19/20 06:25 Potassium 4.0 mmol/L (3.5-5.1) 04/19/20 06:25 Chloride 106 mmol/L (98-107) 04/19/20 06:25 Carbon Dioxide 25 mmol/L (21-32) 04/19/20 06:25 Anion Gap 7.0 (3-11) 04/19/20 06:25 BUN 15 mg/dl (7-18) 04/19/20 06:25 Creatinine 0.88 mg/dl (0.6-1.4) 04/19/20 06:25 Est Cr Clr Drug Dosing 86.2 ml/min 04/19/20 06:25 Est GFR ( Amer) 100.9 04/19/20 06:25 Est GFR (Non-Af Amer) 87.0 04/19/20 06:25 BUN/Creatinine Ratio 17.5 (10-20) 04/19/20 06:25 Glucose 116 mg/dl (70-99) H 04/19/20 06:25 Calcium 8.1 mg/dl (8.5-10.1) L 04/19/20 06:25 Hepatitis C Ab Screen Neg (Neg) 04/18/20 08:10 Blood Type B Positive 04/18/20 08:27 Antibody Screen NEGATIVE 04/18/20 08:27 Diagnostic Findings RIGHT KNEE 2 VIEWS History: Right total knee arthroplasty. Degenerative arthritis. Postop. FINDINGS: The patient is status post a right total knee arthroplasty with revision tibial component. The hardware is intact. No fracture or dislocation. Skin juan jose and surgical drains are in place. IMPRESSION: Right total knee arthroplasty revision tibial component. No evidence for hardware complication.
--- NOTE | 2020-04-19 08:22 | Anesthesiology Progress Note ---
Date of Service April 19, 2020 Anesthesia Post Procedure Vital Signs Vital Signs: Temp Pulse Pulse Pulse Resp BP BP 04/19/20 07:33 36.6 C 75 16 147/70 H 04/19/20 03:57 36.6 C 80 18 163/69 H 04/18/20 23:00 36.6 C 59 L 18 153/75 H 04/18/20 19:30 36.6 C 62 62 18 143/78 H 04/18/20 16:39 36.3 C L 60 18 137/70 04/18/20 15:40 36.4 C L 66 18 132/77 04/18/20 14:40 36.6 C 51 L 16 138/81 04/18/20 14:11 70 15 128/64 04/18/20 13:40 36.3 C L 53 L 14 154/81 H 04/18/20 13:25 36.4 C L 52 L 17 142/71 H 04/18/20 13:15 36.4 C L 77 10 L 131/76 04/18/20 13:05 66 12 127/52 L 04/18/20 12:55 60 8 L 127/62 04/18/20 12:46 36.2 C L 80 12 118/70 04/18/20 08:30 36.7 C 64 18 159/77 H Pulse Ox 04/19/20 07:33 96 04/19/20 03:57 99 04/18/20 23:00 99 04/18/20 19:30 99 04/18/20 16:39 98 04/18/20 15:40 97 04/18/20 14:40 98 04/18/20 14:11 96 04/18/20 13:40 95 04/18/20 13:25 98 04/18/20 13:15 98 04/18/20 13:05 99 04/18/20 12:55 99 04/18/20 12:46 98 04/18/20 08:30 99 Pain Intensity Right Knee: Pain Intensity: 3 Notes Mental Status: alert / awake / arousable and participated in evaluation Patient Amnestic to Procedure: Yes Nausea / Vomiting: adequately controlled Pain: adequately controlled Airway Patency, RR, SpO2: stable & adequate Hydration State: stable & adequate Neuraxial Anesthesia: was administered and sensory block is resolving Anesthetic Complications: no major complications apparent and Pt Satisfied with anesthetic care
[2020-04-19] MEDS: SODIUM CHLORIDE 1 GM TABLET PO SCH (08:55)
[2020-04-19] MEDS: DOCUSATE SODIUM 100 MG CAP PO SCH (08:55)
[2020-04-19] MEDS: FERROUS GLUCONATE 324 MG TAB PO SCH (08:55)
[2020-04-19] MEDS ORDERED: FUROSEMIDE 20 MG TAB PO SCH (09:00)
[2020-04-19] MEDS ORDERED: PANTOprazole 40 MG TAB PO SCH (09:00)
[2020-04-19] MEDS ORDERED: MULTIVITAMIN TAB PO SCH (09:00)
[2020-04-19] MEDS: ASPIRIN 81 MG ECTAB PO SCH (10:52)
--- NOTE | 2020-04-21 10:51 | Discharge Summary ---
Date of Service April 21, 2020 Admission HPI Per Admitting Provider Mr Isbell is a 70 year old male who is here for a follow up of right knee pain, presents for pre-op prior to a right total knee revision at [facility]. He presents with pain and swelling on the right side. On 11/17/18 Dr. Sorto performed right knee TKA. over the course of the past 6 months has developed intermittent swelling and has had a few aspirations which show no acute findings or infectious ideology. he then underwent bone scan which showed loosening of the tibial component. He states that the symptoms have been chronic non-traumatic. Currently the patient states that the symptoms are mild-moderate. The pain is described as aching and throbbing. He rates his current pain as 3/10. worst pain is 7/10. Admission Exam Per Admitting Provider Physical Exam Physical Exam: Ht: 5ft 9in Wt: 86kg Constitutional: WD/WN, vitals as above no acute distress Respiratory: normal respiratory effort, lungs clear to auscultation no respiratory distress, no labored breathing and does not use accessory muscles Cardiovascular: RRR, no murmur, no edema Gastrointestinal (Abdomen): normal bowel sounds, soft, nontender, no hepatosplenomegaly Musculoskeletal: Knee: + knee abnormal to inspection (Right Knee), + effusion (+1 effusion), + surgical incision (well healed midline incision), + limited ROM of knee (ROM 0/0/115) and + joint line tenderness (medial joint line); no deformity, no skin erythema, no ecchymosis, no crepitation with knee ROM, no valgus laxity, no varus laxity and anterior drawer test negative 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 diff Verified 04/18/20 08:17 azelastine [From Astelin] AdvReac Intermediate severe Verified 04/18/20 08:17 congestion Consultations 04/18/20 13:41 Consult Case Management - Discharge Planning Routine Procedures Performed Operation Date: 04/18/20 10:45 Actual Procedures p Right Knee Revision, Tibial Revision(Right) - Epi J Sorto, DO Ordered Studies 04/18/20 05:00 US - OR guided needle placemen Routine Hospital Course (1) Aseptic loosening of prosthetic knee: Date of Service April 19, 2020 Assessment & Plan (1) History of revision of total replacement of right knee joint: POD #1 s/p Right TKA revision tibial component pt/ot dvt proph with TALA/SCD/ASA plan for d/c home with home health PT, will recheck after PT today for poss d/c home with HHPT will leave hemovac in place until tomorrow, have HH d/c tomorrow Admission and Anticipated Discharge Date Admission Date: April 18, 2020 Subjective POD #1 s/p Right TKA revision tibial component Review of Systems Constitutional: no fever, no chills and no sweats Respiratory: no cough and no dyspnea Cardiovascular: no chest pain and no dyspnea Gastrointestinal: no abdominal pain, no nausea and no vomiting Physical Exam Physical Exam: Vital Signs Temp 36.6 C 04/19/20 07:33 Pulse 75 04/19/20 07:33 Resp 16 04/19/20 07:33 BP 147/70 H 04/19/20 07:33 Pulse Ox 96 04/19/20 07:33 Intake & Output 04/18/20 04/19/20 04/19/20 18:59 06:59 18:59 Intake Total 1710 / 2943.333 1233.333 / 2943.33 3 Output Total 626 / 1951 1325 / 1951 Balance 1084 / 992.333 -91.667 / 992.333 Weight 89.1 kg Intake: IV 870 / 2103.333 1233.333 / 2103.33 3 Lr 1,000 ml @ 15 mls/hr IV . 600 / 600 Q24H JAMES Rx#:[id number] Nss 1000ML 1,0 00 ml @ 100 mls/ 983.333 / 983.333 hr IV .Q10H SC H Rx#:[id number] Vancomycin HCl 1,250 mg In Nss 250 / 250 250 ml @ 200 m ls/hr IV Q12H JAMES Rx#:[id number] VANCOMYCIN HCL 1,000 mg In 270 270 / 270 ml @ 125 mls/h r IV PREOP JAMES Rx #:[id number] IV Perioperative 600 / 600 Oral 240 / 240 Output: Urine 1000 / 1000 Estimated Blood Loss 10 / 10 Drain Output 616 / 941 325 / 941 Right Knee Hem ovac #1 616 / 941 325 / 941 Other: Weight Measureme nt Method Standing Scale Constitutional: WD/WN, vitals as above no acute distress Musculoskeletal: Right Leg: NVDI, calf SNT, negative andres sign. DP palpable, able to wiggle toes/ankle movement without difficulty. dressing clean dry and intact. Results & Data ([facility]) Vital Signs (Past 12 Hours) Vital Signs Temp Pulse Resp BP Pulse Ox 04/19/20 07:33 36.6 C 75 16 147/70 H 96 04/19/20 03:57 36.6 C 80 18 163/69 H 99 04/18/20 23:00 36.6 C 59 L 18 153/75 H 99 Laboratory Results Laboratory Results WBC 4.90 K/uL (4.8-10.8) 04/19/20 06:25 RBC 3.78 M/uL (4.7-6.1) L 04/19/20 06:25 Hgb 11.2 g/dL (14.0-18.0) L 04/19/20 06:25 Hct 32.7 % (42-52) L 04/19/20 06:25 Total Time Total Time Spent Total Time Spent (In Minutes): 5 Discharge Plan Discharge Items Patient Disposition: Home - Home Health Services Reason For Visit: Broken Internal Right Knee Prosthesis Discharge Diagnosis: revision tibial component right total knee arthroplasty Activity: Per Instructions section Lifting: Wait until after follow-up appointment Weightbearing Comment: WBAT with walker Non-emergency contact: Surgeon Call non-emergency contact if: you have any medication questions, your temperature is above 101, your wound has increased redness, your wound has increased drainage and your wound pain has increased Follow-up/Referrals: George Slaughter III, MD [Primary Care Provider] - Diet: Regular Addtl Attending Provider Instructions: ACTIVITY RECOMMENDATIONS: SELF CARE INSTRUCTIONS AFTER TOTAL KNEE REPLACEMENT A. You may need to continue a physical therapy program after discharge from the hospital. There are several options available to you. Your doctor will assist you in selecting the best one for you. 1. An out-patient facility 2 to 3 times a week for therapy or home therapy. 2. Continue working on all exercises taught to you in the hospital. Your goals should be to increase bending of your knee to 90 degrees and beyond and to fully straighten your knee. B. You may progress at your own pace from walking with a walker or crutches to a cane; then to no assistive devices. C. Make walking a part of your daily routine. Be up as much as comfortable with rest periods throughout the day. Rest with leg elevation is very important. Use the ice wrap frequently for the first 3-4 weeks. D. There are no restrictions on activities. You may ride in a car, shop, participate in dry wall installations mechanic and all social activities. E. Wear the long elastic stockings (TALA hose) 20 hours a day for 2 weeks after surgery. They can be removed several times a day for laundering and for a bath. F. You may shower, no tub baths until cleared by your doctor. SPECIAL CARE INSTRUCTIONS: VERY IMPORTANT TO READ AND REVIEW A. There are a few signs you need to watch for after you are home. Call [facility] if you notice any of the followin. Increased severe knee pain. Some pain is expected especially when you exercise. 2. Increased swelling in your leg or knee; pain or swelling of the calf muscle in either lower leg. 3. Any fluid drainage from the incision. 4. Shortness of breath or chest pain. B. Please call [facility] at if you have any concerns or questions about your operation or recovery. The doctor or his nurse will return your call promptly. C. You must take antibiotics before dental work, bladder, bowel or other surgery. Your doctor will provide you with a permanent care to carry describing this precaution. IMPORTANT: * REMEMBER TO TAKE ASPIRIN, 81 MG, TWICE DAILY FOR 4 WEEKS UNLESS OTHERWISE DIRECTED. THIS IS YOUR BLOOD THINNER. * HIGH RISK PATIENTS MAY BE PRESCRIBED A STRONGER BLOOD THINNER. THIS WILL BE PROVIDED AT DISCHARGE. * CALL IF INCREASED PAIN, REDNESS, DRAINAGE OR FEVER GREATER THAT 101. * WEAR TALA HOSE 20 HOURS PER DAY FOR 2 WEEKS. * MARVIN Dressing- This is a large suction dressing covering your incision. This will help pull any excess drainage from the wound and allow your incision to heal properly. You may shower with this if you can keep the unit outside of the shower. If any bleeding or leakage is noted please call your doctor's office. This will remain on your incision for 7 days and then should be removed. This can be done yourself or by the home nursing staff if applicable. The entire unit is disposable once removed. Once removed, keep incision clean and dry. If redness or drainage is noted, please call your surgeon. IF INCISION IS LEAKING THROUGH DRESSING, CALL THE OFFICE . FOLLOW UP VISIT: If appointment is not already scheduled: Please call [facility] to make a follow-up appointment for 2 weeks after your surgery at . Pending Studies at Discharge: No Stand-Alone Forms: [facility], Opioid Pain Management, Smoking Cessation Medications and DC Order Prescriptions: New aspirin 81 mg Tablet,Delayed Release (Dr/Ec) 81 mg PO BID 30 Days Qty: 60 RF: 0 acetaminophen 500 mg Tablet 1,000 mg PO Q8 21 Days Qty: 126 RF: 0 oxycodone 5 mg Tablet 5 - 10 mg PO Q6H PRN (Reason: pain) Qty: 30 RF: 0 docusate sodium 100 mg Capsule 100 mg PO BID 10 Days Qty: 20 RF: 0 Continued furosemide 20 mg tablet 20 mg PO QAM Qty: 90 RF: 3 famotidine 20 mg tablet 20 mg PO HS RF: 0 sodium chloride 1 gram Tablet 1 g PO BID RF: 0 pantoprazole 40 mg tablet,delayed release (DR/EC) 40 mg PO QAM RF: 0 cholecalciferol (vitamin D3) 1,000 unit Tablet 1,000 unit PO QPM RF: 0 Centrum 18-400 mg-mcg Tablet 1 tab PO QAM RF: 0 Discontinued aspirin 81 mg tablet,chewable 81 mg PO QAM RF: 0 Discharge Orders: Discharge Order (Routine); Ordered 04/19/20 Ordered By: Jose Alejandro Leahy/Other Patient Handouts: DVT Post Op Prevention Admission Data Admit Date/Time: 04/18/20 12:56 Attending Provider: Epi Sorto Admit Provider: Epi Sorto Primary Care Provider: George Slaughter III Other Providers: [facility],Home Health Other Interventions: Discharge Summary Assessment (RN) Last Done: 04/19/20 08:40
== END 2020-04-19 11:30 | disposition home health service (06) ==
LOC: 3E 08:00 → ASU 08:00